=== PATIENT | female | born 1990 | race Caucasian/White ===

== ENCOUNTER 2016-12-26 09:51 | Emergency (ER) | payer MEDICAID ==
[~2016-12-26] VITALS: Ht 154.9 cm; Wt 98.1 kg
[~2016-12-26 09:51] MED LIST: CYCL10TA79 PO; DOCU250C4 PO; GABA300C PO; IBUP-974 PO; NAPR500T1 PO; TRAM50TA94 PO
[2016-12-26 09:57] VITALS: BP 120/64
--- NOTE | 2016-12-26 10:03 | NUR ---
PT AMBULATED TO BED 8 AT THIS TIME.
--- NOTE | 2016-12-26 10:12 | NUR ---
PT CAME TO ER DUE W/ C/O LOWER ABDOMINAL PAIN W/ NAUSEA X YESTERDAY.PAIN SCALE OF 8/10 NONE RADIATING PAIN;PT STATES THAT PAIN IS AGGRAVATED WHEN SHE STANDS UP;DENIES CP/SOB/F/VOMITTING AT THIS TIME;AAOX4;NO ACUTE DISTRESS NOTED AT THIS TIME;POSITION FOR COMFORT;NEEDS ATTENDED;SAFETY MEASURES DONE;BEDRAILS UP;BED BRAKES APPLIED; MADE AARE OF PT'D CONDITION.
--- NOTE | 2016-12-26 10:16 | NUR ---
DR COX AT BEDSIDE
[2016-12-26] MEDS ORDERED: NACL 0.9% 1,000 ML IV SCH (10:18)
[2016-12-26] MEDS ORDERED: FAMOTIDINE 20 MG/2 ML VIAL IVP ONE (10:20)
[2016-12-26] MEDS ORDERED: ONDANSETRON 4 MG/2 ML VIAL IVP ONE (10:20)
[2016-12-26] MEDS ORDERED: MORPHINE SULFATE 4 MG/ML SYR IVP ONE (10:20)
[2016-12-26 10:56] LABS: BASOPHILS # (AUTO) 0.2 K/uL (0.00-0.22); BASOPHILS % (AUTO) 2.3 % (0.0-2.0); EOSINOPHILS # (AUTO) 0.1 K/uL (0-0.4); EOSINOPHILS % (AUTO) 0.8 % (0.0-4.0); HEMATOCRIT 44.1 % (36-48); HEMOGLOBIN 14.7 g/dL (12.0-16.0); LYMPHOCYTES # (AUTO) 2.5 K/uL (2.5-16.5); LYMPHOCYTES % (AUTO) 28.7 % (20.5-51.1); MEAN CORPUSCULAR HEMOGLOBIN 29 pg (27-31); MEAN CORPUSCULAR HGB CONC 33 g/dL (33-37); MEAN CORPUSCULAR VOLUME 88 fL (80-94); MONOCYTES # (AUTO) 0.5 K/uL (0.8-1.0); MONOCYTES % (AUTO) 5.8 % (1.7-9.3); NEUTROPHILS # (AUTO) 5.4 K/uL (1.8-7.7); NEUTROPHILS % (AUTO) 62.4 % (42.2-75.2); PLATELET COUNT (AUTO) 321 K/uL (140-450); RED BLOOD CELL COUNT(AUTO) 5.02 MIL/uL (4.20-5.40); RED CELL DISTRIBUTION WIDTH 12.5 % (11.6-13.7); WHITE BLOOD COUNT (AUTO) 8.7 K/uL (4.8-10.8)
[2016-12-26 11:06] LABS: APPEARANCE,URINE CLEAR (CLEAR); BILIRUBIN,URINE NEGATIVE (NEGATIVE); BLOOD, URINE NEGATIVE (NEGATIVE); COLOR,URINE YELLOW (YELLOW); LEUKOCYTE ESTERASE ,URINE NEGATIVE (NEGATIVE); NITRITE, URINE NEGATIVE (NEGATIVE); PH,URINE 5.5 (5.0-9.0); PROTEIN,URINE NEGATIVE (NEGATIVE); UGLUCOSE NEGATIVE (NEGATIVE); UROBILINOGEN,URINE 0.2 EU/dL (0.2 - 1)
[2016-12-26 11:09] LABS: ANION GAP 11.7 (8-16); CALCIUM 8.6 mg/dL (8.5-10.1); CARBON DIOXIDE 28.7 mmol/L (21-32); CREATININE 0.6 mg/dL (0.6-1.3); POTASSIUM 4.4 mmol/L (3.5-5.1)
[2016-12-26 11:14] LABS: ALBUMIN 3.7 g/dL (3.4-5.0); TOTAL BILIRUBIN 0.5 mg/dL (0.0-1.0); TOTAL PROTEIN, SERUM 7.4 g/dL (6.4-8.2)
--- NOTE | 2016-12-26 11:18 | NUR ---
PT LYING ON BED;NO ACUTE DISTRESS NOTED AT THIS TIME;WILL CONTINUE TO MONITOR PT.
--- NOTE | 2016-12-26 11:40 | NUR ---
PT AMBULATED TO THE RESTROOM;ACCOMPANIED BY HER GF;NO ACUTE DISTRESS NOTED AT THIS TIME.
--- NOTE | 2016-12-26 12:43 | NUR ---
Patient discharged with v/s stable. Written and verbal after care instructions given and explained.Patient alert, oriented and verbalized understanding of instructions. Ambulatory with steady gait. All questions addressed prior to discharge. ID band removed. Patient advised to follow up with PMD. Rx of ZOFRAN AND NORCO given. Patient educated on indication of medication including possible reaction and side effects. Opportunity to ask questions provided and answered.
[2016-12-26 12:44] VITALS: BP 121/65
== END 2016-12-26 12:43 | disposition home or self-care (01) ==
LOC: MED 09:51
DX: K52.9 Noninfective gastroenteritis and colitis, unspecified (principal); J45.909 Unspecified asthma, uncomplicated
CPT/HCPCS: 36415; 80053; 81003; 81025; 82150; 83690; 85025; 96361; 96374; 96375; 99284; J2270; J2405; J3490; J7030

== ENCOUNTER 2016-12-27 20:19 | Emergency (ER) | payer MEDICAID ==
[~2016-12-27] VITALS: Ht 154.9 cm; Wt 98.0 kg
[2016-12-27 20:29] VITALS: BP 128/50
--- NOTE | 2016-12-28 00:13 | NUR ---
TO ER BED 7
--- NOTE | 2016-12-28 00:27 | NUR ---
PATIENT PRESENTS TO ED WITH BL LOWER ABD PAIN SINCE MONDAY . PT STATES LAST BM WAS MONDAY AND IT WAS VERY LITTLE . DENIES DIARRHEA; SKIN IS PINK/WARM/DRY; AAOX4 WITH EVEN AND STEADY GAIT; LUNGS CLEAR BL; HR EVEN AND REGULAR; PT DENIES ANY FEVER, CP, SOB, OR COUGH AT THIS TIME; PATIENT STATES PAIN OF 10/10 AT THIS TIME; VSS; PATIENT POSITIONED FOR COMFORT; HOB ELEVATED; BEDRAILS UP X2; BED DOWN. ER MD MADE AWARE OF PT STATUS. FAMILY AT BEDSIDE AT THIS TIME
[2016-12-28] MEDS ORDERED: NACL 0.9% 1,000 ML IV ONE (00:45)
[2016-12-28] MEDS ORDERED: ONDANSETRON 4 MG/2 ML VIAL IVP ONE (00:45)
[2016-12-28] MEDS ORDERED: HYDROmorphone 1 MG/ML AMP IVP ONE ×2 (00:45→03:45)
[2016-12-28 01:17] LABS: BASOPHILS # (AUTO) 0.3 K/uL (0.00-0.22); BASOPHILS % (AUTO) 2.5 % (0.0-2.0); EOSINOPHILS # (AUTO) 0.1 K/uL (0-0.4); EOSINOPHILS % (AUTO) 1.1 % (0.0-4.0); HEMATOCRIT 43.4 % (36-48); HEMOGLOBIN 14.3 g/dL (12.0-16.0); LYMPHOCYTES % (AUTO) 38.3 % (20.5-51.1); MEAN CORPUSCULAR HEMOGLOBIN 29 pg (27-31); MEAN CORPUSCULAR HGB CONC 33 g/dL (33-37); MEAN CORPUSCULAR VOLUME 89 fL (80-94); MONOCYTES # (AUTO) 0.7 K/uL (0.8-1.0); MONOCYTES % (AUTO) 7.2 % (1.7-9.3); NEUTROPHILS # (AUTO) 5.3 K/uL (1.8-7.7); NEUTROPHILS % (AUTO) 50.9 % (42.2-75.2); PLATELET COUNT (AUTO) 327 K/uL (140-450); RED CELL DISTRIBUTION WIDTH 12.7 % (11.6-13.7); WHITE BLOOD COUNT (AUTO) 10.4 K/uL (4.8-10.8)
[2016-12-28 01:18] LABS: APPEARANCE,URINE SL CLOUDY (CLEAR); BILIRUBIN,URINE NEGATIVE (NEGATIVE); BLOOD, URINE NEGATIVE (NEGATIVE); COLOR,URINE YELLOW (YELLOW); LEUKOCYTE ESTERASE ,URINE NEGATIVE (NEGATIVE); NITRITE, URINE NEGATIVE (NEGATIVE); PH,URINE 5.5 (5.0-9.0); PROTEIN,URINE NEGATIVE (NEGATIVE); UGLUCOSE NEGATIVE (NEGATIVE); UROBILINOGEN,URINE 0.2 EU/dL (0.2 - 1)
[2016-12-28 01:29] LABS: BACTERIA,URINE FEW /HPF (None Seen); RBC,URINE 0-5 (RARE) /HPF (0-5); SQUAMOUS EPITHELIAL CELL,UR 0-3 (FEW) /LPF (0-3 (FEW)); WBC,URINE 0-5 (RARE) /HPF (0-5)
[2016-12-28 01:32] LABS: ALBUMIN 3.7 g/dL (3.4-5.0); ANION GAP 13.6 (8-16); CALCIUM 8.8 mg/dL (8.5-10.1); CARBON DIOXIDE 27.4 mmol/L (21-32); CREATININE 0.7 mg/dL (0.6-1.3); TOTAL BILIRUBIN 0.4 mg/dL (0.0-1.0); TOTAL PROTEIN, SERUM 7.3 g/dL (6.4-8.2)
--- NOTE | 2016-12-28 04:30 | NUR ---
Patient appears to be resting comfortably in bed. Vital Signs within normal limits. Respirations even and unlabored. GIRLFRIEND AT BEDSIDE AT THIS TIME
[2016-12-28 07:04] VITALS: BP 127/82
--- NOTE | 2016-12-28 07:05 | NUR ---
Patient discharged with v/s stable. Written and verbal after care instructions given and explained. Patient alert, oriented and verbalized understanding of instructions. Ambulatory with steady gait. All questions addressed prior to discharge. ID band removed. Patient advised to follow up with PMD. Rx of FLEET DISPOSABLE RECTAL ENEMA (TWIN PACK) given. Patient educated on indication of medication including possible reaction and side effects. Opportunity to ask questions provided and answered.
--- NOTE | 2016-12-28 07:05 | NUR ---
IV removed, catheter intact and site benign. Applied folded 4x4 gauze and tape to stop bleeding.
== END 2016-12-28 07:04 | disposition home or self-care (01) ==
LOC: MED 20:20
DX: K59.00 Constipation, unspecified (principal); R11.10 Vomiting, unspecified; J45.909 Unspecified asthma, uncomplicated
CPT/HCPCS: 36415; 74177; 80053; 81001; 82150; 83690; 84703; 85025; 96361; 96374; 96375; 96376; 99285; J1170; J2405; J7030; Q9967

== ENCOUNTER 2017-01-17 19:14 | Emergency (ER) | payer MEDICAID ==
[~2017-01-17] VITALS: Ht 152.4 cm; Wt 99.8 kg
[2017-01-17 19:55] VITALS: BP 122/71
--- NOTE | 2017-01-17 20:33 | NUR ---
PT TAKEN TO [facility] FROM [facility]
--- NOTE | 2017-01-17 20:41 | NUR ---
PT RETURN FROM XRAY TO LOBBY
--- NOTE | 2017-01-17 22:40 | NUR ---
PT TAKEN TO BED 4
--- NOTE | 2017-01-17 22:41 | NUR ---
Dr. Christianson evaluating patient at bedside.
[2017-01-17] MEDS ORDERED: KETOROLAC 60 MG/2 ML VIAL IM ONE (22:55)
--- NOTE | 2017-01-17 23:07 | NUR ---
PATIENT PRESENTS TO ED WITH C/O RT ANKLE PAIN, TWISTED WHILE WALKING TODAY .PT DENIES N/V/D; SKIN IS PINK/WARM/DRY; AAOX4 WITH EVEN AND STEADY GAIT; LUNGS CLEAR BL; HR EVEN AND REGULAR; PT DENIES ANY FEVER, CP, SOB, OR COUGH AT THIS TIME; PATIENT STATES PAIN OF 8/10 AT THIS TIME; VSS; PATIENT POSITIONED FOR COMFORT; HOB ELEVATED; BEDRAILS UP X2; BED DOWN. ER MD MADE AWARE OF PT STATUS.
--- NOTE | 2017-01-18 00:09 | NUR ---
Patient discharged with v/s stable. Written and verbal after care instructions given and explained. Patient verbalized understanding. Ambulatory with steady gait. All questions addressed prior to discharge. Advised to follow up with PMD.
[2017-01-18 00:16] VITALS: BP 135/79
== END 2017-01-18 00:09 | disposition home or self-care (01) ==
LOC: MED 19:14
DX: S93.491A Sprain of other ligament of right ankle, initial encounter (principal); J45.909 Unspecified asthma, uncomplicated; Z79.899 Other long term (current) drug therapy; X58.XXXA Exposure to other specified factors, initial encounter; Y93.89 Activity, other specified; Y92.89 Other specified places as the place of occurrence of the external cause; Y99.8 Other external cause status
CPT/HCPCS: 73610; 96372; 99284; J1885

== ENCOUNTER 2017-02-15 13:56 | Emergency (ER) | payer MEDICAID ==
[~2017-02-15] VITALS: Ht 154.9 cm; Wt 99.8 kg
[~2017-02-15 13:56] MED LIST changes: +ALBUTEROL0.09 MG/A1 IH; -CYCL10TA79 PO; +CYCLOBENZAPRINE10 M7 PO; -DOCU250C4 PO; +DOK250 M1 PO; +DONNATAL1 TAB PO; -GABA300C PO; -IBUP-974 PO; +MOTRIN800 MG PO; -NAPR500T1 PO; +NAPROSYN500 MG PO; +NEURONTIN300 MG PO; -TRAM50TA94 PO; +ULTRAM50 MG PO
--- NOTE | 2017-02-15 14:50 | NUR ---
CALLED FOR PT NO ANSWER. WILL TRY AGAIN IN 10-15MINS.
[2017-02-15 15:47] VITALS: BP 120/75
--- NOTE | 2017-02-15 20:36 | NUR ---
PATIENT LEFT WITHOUT BEING SEEN BY DR. MCARTHUR. NO FURTHER CARE PROVIDED FOR PATIENT.
== END 2017-02-15 20:36 | disposition left against medical advice (07) ==
LOC: MED 13:56
DX: R10.30 Lower abdominal pain, unspecified (principal); Z53.21 Procedure and treatment not carried out due to patient leaving prior to being seen by health care provider

== ENCOUNTER 2018-02-21 10:17 | Emergency (ER) | payer MEDICAID ==
[~2018-02-21] VITALS: Ht 154.9 cm; Wt 74.2 kg
[~2018-02-21 10:17] MED LIST changes: -ALBUTEROL0.09 MG/A1 IH; -CYCLOBENZAPRINE10 M7 PO; +DOCU250C4 PO; -DOK250 M1 PO; -DONNATAL1 TAB PO; +GABA300C PO; +IBUP-974 PO; -MOTRIN800 MG PO; +NAPR-54 PO; -NAPROSYN500 MG PO; -NEURONTIN300 MG PO; +TRAM50TA1 PO; -ULTRAM50 MG PO
[2018-02-21 10:23] VITALS: BP 99/69
--- NOTE | 2018-02-21 10:30 | NUR ---
PT AMBULATED TO BED 11, REPORT GIVEN TO MIRNA MADRIGAL
--- NOTE | 2018-02-21 10:41 | NUR ---
PATIENT PRESENTS TO ED WITH COMPLAINTS OF RUQ PAIN X 3 WEEKS, AND N/V/D. PATIENT ALSO REPORTS EXTREME FATIGUE AND DIZZINESS. PATIENT STATES SHE FEELS LIKE SHE IS GOING TO FAINT WHEN SHE GETS OUT OF BED. NEGATIVE FOR ORTHOSTATICS. SKIN IS PINK/WARM/DRY; AAOX4 WITH EVEN AND STEADY GAIT; LUNGS CLEAR BL; HR EVEN AND REGULAR; PT DENIES ANY FEVER, CP, SOB, OR COUGH AT THIS TIME; PATIENT STATES PAIN OF 7/10 AT THIS TIME; VSS; PATIENT POSITIONED FOR COMFORT; HOB ELEVATED; BEDRAILS UP X2; BED DOWN. ER MD MADE AWARE OF PT STATUS.
[2018-02-21] MEDS ORDERED: NACL 0.9% 1,000 ML IV SCH (11:27)
[2018-02-21] MEDS ORDERED: ONDANSETRON 4 MG/2 ML VIAL IVP ONE (11:30)
[2018-02-21] MEDS ORDERED: MORPHINE SULFATE 4 MG/ML SYR IVP ONE (11:30)
[2018-02-21 11:51] LABS: BASOPHILS % (AUTO) 0.6 % (0.0-2.0); EOSINOPHILS # (AUTO) 0.1 K/uL (0-0.4); HEMATOCRIT 40.1 % (36-48); HEMOGLOBIN 13.1 g/dL (12.0-16.0); LYMPHOCYTES # (AUTO) 1.8 K/uL (2.5-16.5); LYMPHOCYTES % (AUTO) 23.7 % (20.5-51.1); MEAN CORPUSCULAR HEMOGLOBIN 30 pg (27-31); MEAN CORPUSCULAR HGB CONC 33 g/dL (33-37); MEAN CORPUSCULAR VOLUME 90.5 fL (80-94); MONOCYTES # (AUTO) 0.4 K/uL (0.8-1.0); NEUTROPHILS # (AUTO) 5.3 K/uL (1.8-7.7); NEUTROPHILS % (AUTO) 69.7 % (42.2-75.2); PLATELET COUNT (AUTO) 356 K/uL (140-450); RED BLOOD CELL COUNT(AUTO) 4.43 MIL/uL (4.20-5.40); RED CELL DISTRIBUTION WIDTH 14.6 % (11.6-13.7); WHITE BLOOD COUNT (AUTO) 7.6 K/uL (4.8-10.8)
--- NOTE | 2018-02-21 12:20 | NUR ---
PATIENT MBULATED TO RESTROOM.
[2018-02-21 12:24] LABS: APPEARANCE,URINE CLEAR (CLEAR); BILIRUBIN,URINE NEGATIVE (NEGATIVE); BLOOD, URINE NEGATIVE (NEGATIVE); COLOR,URINE YELLOW (YELLOW); LEUKOCYTE ESTERASE ,URINE NEGATIVE (NEGATIVE); NITRITE, URINE NEGATIVE (NEGATIVE); UGLUCOSE NEGATIVE (NEGATIVE)
[2018-02-21 12:34] LABS: ALBUMIN 3.3 g/dL (3.4-5.0); ANION GAP 11.9 (8-16); CREATININE 0.6 mg/dL (0.6-1.3); POTASSIUM 4.9 mmol/L (3.5-5.1); TOTAL BILIRUBIN 0.4 mg/dL (0.0-1.0)
[2018-02-21 12:42] LABS: RBC,URINE 0-5 (RARE) /HPF (0-5); WBC,URINE 0-5 (RARE) /HPF (0-5)
[2018-02-21] MEDS ORDERED: KETOROLAC 30 MG/ML VIAL IVP ONE (12:50)
[2018-02-21] MEDS ORDERED: METOCLOPRAMIDE 10 MG/2 ML INJ VIAL IVP ONE (12:50)
[2018-02-21] MEDS ORDERED: HYDROmorphone PFS 2 MG/ML SYR IVP ONE (12:50)
[2018-02-21] MEDS ORDERED: diphenhydrAMINE 50 MG/ML VIAL IVP ONE (12:50)
[2018-02-21 14:54] VITALS: BP 89/46
--- NOTE | 2018-02-21 14:54 | NUR ---
Patient discharged with v/s stable. Written and verbal after care instructions given and explained. Patient alert, oriented and verbalized understanding of instructions. Ambulatory with steady gait. All questions addressed prior to discharge. ID band removed. Patient advised to follow up with PMD. Rx of Hayward, Reglan, and Ibuprofen given. Patient educated on indication of medication including possible reaction and side effects. Opportunity to ask questions provided and answered.
== END 2018-02-21 14:54 | disposition home or self-care (01) ==
LOC: MED 10:17
DX: K80.80 Other cholelithiasis without obstruction (principal); J45.909 Unspecified asthma, uncomplicated
CPT/HCPCS: 36415; 76705; 80053; 81001; 81025; 83690; 84703; 85025; 96361; 96374; 96375; 99285; J1170; J1200; J1885; J2270; J2405; J2765; Q0092

== ENCOUNTER 2018-02-28 11:31 | Inpatient (IN) | payer MEDICAID ==
[~2018-02-28] VITALS: Ht 152.4 cm; Wt 77.1 kg
[2018-02-28 11:36] VITALS: BP 121/57
[2018-02-28] MEDS ORDERED: NACL 0.9% 1,000 ML IV ONE (11:40)
[2018-02-28] MEDS ORDERED: MORPHINE SULFATE 4 MG/ML SYR IVP ONE ×2 (11:40→12:35)
--- NOTE | 2018-02-28 11:41 | NUR ---
PT AMBULATES TO BED 11
--- NOTE | 2018-02-28 12:00 | NUR ---
PATIENT PRESENTS TO ED WITH COMPLAINTS OF ABDOMINAL PAIN. ANNELISEN STATES DR. REID CALLED HER AND ADVISED HER TO COME BACK IN FROM YESTERDAY TO GET ADMITTED TO THE HOSPITAL. PATIENT VISIBLY UPSET CRYING IN PAIN. SKIN IS PINK/WARM/DRY; AAOX4 WITH EVEN AND STEADY GAIT; LUNGS CLEAR BL; HR EVEN AND REGULAR; PT DENIES ANY FEVER, CP, SOB, OR COUGH AT THIS TIME; PATIENT STATES PAIN OF 10/10 AT THIS TIME; VSS; PATIENT POSITIONED FOR COMFORT; HOB ELEVATED; BEDRAILS UP X2; BED DOWN. ER MD MADE AWARE OF PT STATUS.
[2018-02-28] MEDS ORDERED: ONDANSETRON 4 MG/2 ML VIAL IVP ONE (12:05)
[2018-02-28 12:10] LABS: BASOPHILS % (AUTO) 0.6 % (0.0-2.0); EOSINOPHILS # (AUTO) 0.1 K/uL (0-0.4); EOSINOPHILS % (AUTO) 1.4 % (0.0-4.0); HEMATOCRIT 38.5 % (36-48); HEMOGLOBIN 12.6 g/dL (12.0-16.0); LYMPHOCYTES # (AUTO) 1.9 K/uL (2.5-16.5); LYMPHOCYTES % (AUTO) 26.2 % (20.5-51.1); MEAN CORPUSCULAR HEMOGLOBIN 30 pg (27-31); MEAN CORPUSCULAR HGB CONC 33 g/dL (33-37); MEAN CORPUSCULAR VOLUME 90.9 fL (80-94); MONOCYTES # (AUTO) 0.4 K/uL (0.8-1.0); NEUTROPHILS # (AUTO) 4.7 K/uL (1.8-7.7); NEUTROPHILS % (AUTO) 65.8 % (42.2-75.2); PLATELET COUNT (AUTO) 312 K/uL (140-450); RED BLOOD CELL COUNT(AUTO) 4.24 MIL/uL (4.20-5.40); RED CELL DISTRIBUTION WIDTH 14.6 % (11.6-13.7); WHITE BLOOD COUNT (AUTO) 7.1 K/uL (4.8-10.8)
[2018-02-28 12:30] LABS: ANION GAP 6.4 (8-16); CARBON DIOXIDE 29.3 mmol/L (21-32); CREATININE 0.7 mg/dL (0.6-1.3); POTASSIUM 3.7 mmol/L (3.5-5.1)
[2018-02-28 12:36] LABS: ALBUMIN 3.4 g/dL (3.4-5.0); TOTAL BILIRUBIN 0.4 mg/dL (0.0-1.0)
[2018-02-28] MEDS ORDERED: ACETAMINOPHEN 325 MG TAB PO PRN (13:05)
[2018-02-28] MEDS ORDERED: ONDANSETRON 4 MG/2 ML VIAL IM/IVP PRN (13:05)
[2018-02-28] MEDS ORDERED: HYDROcodone/APAP 5/325 MG 1 TAB TAB PO PRN (13:05)
[2018-02-28] MEDS ORDERED: DOCUSATE SODIUM 100 MG GELCAP PO PRN (13:05)
--- NOTE | 2018-02-28 13:14 | NUR ---
XRAY AT BEDSIDE
--- NOTE | 2018-02-28 13:49 | NUR ---
Patient will be admitted to care of DR. VELAZQUEZ. Admited to [facility]. Will go to room 105B. Belongings list completed. Report to MIRNA BECKER.
[2018-02-28 13:50] VITALS: BP 118/56
--- NOTE | 2018-02-28 14:00 | NUR ---
PT ARRIVED FROM ER IN [facility], REPORT RECEIVED FROM ER, PT AAOX4, AMBULATES FROM HALLWAY TO BED WITH STAEDY GAIT, C/O ABD PAIN 06/27, WILL MEDICATE PER ORDER, ABD SOFT, NON DISTENDED, TENDER TO PALP RUQ, PT REPORTS NAUSEA BUT NO VOMITING, DIARRHEA AT HOME, PLAN OF CARE REVIEWED, PT ORIENTED TO ROOM AND FLOOR, CALL LOZADA WITHIN REACH, SIDE RAILS UP, BED LOCKED IN LOW POSITION, WILL CONTINUE TO MONITOR.
[2018-02-28 14:02] LABS: APPEARANCE,URINE CLEAR (CLEAR); BILIRUBIN,URINE NEGATIVE (NEGATIVE); BLOOD, URINE 3+ (NEGATIVE); LEUKOCYTE ESTERASE ,URINE NEGATIVE (NEGATIVE); NITRITE, URINE NEGATIVE (NEGATIVE); UGLUCOSE NEGATIVE (NEGATIVE)
[2018-02-28] MEDS: NACL 0.9% 1,000 ML IV SCH (14:13)
[2018-02-28 14:21] LABS: BARBITURATE, URINE NEG. ng/ml (NEG <=200); BENZODIAZEPINE, URINE NEG. ng/mL (NEG <=200); CANNABINOID, URINE NEG. ng/mL (NEG <=50); COCAINE, URINE NEG. ng/mL (NEG <=300); OPIATE, URINE NEG. ng/mL (NEG <=2000); PHENCYCLIDINE SCREEN,URINE NEG. ng/mL (NEG <=25)
[2018-02-28 14:25] LABS: CHOL/HDL RATIO 2.9 (1-4.5); MAGNESIUM 1.8 mg/dL (1.8-2.4); PHOSPHORUS 3.3 mg/dL (2.5-4.9); THYROID STIMULATING HORMONE 1.74 uIU/mL (0.34-3.74)
[2018-02-28 14:26] LABS: COLOR,URINE STRAW (YELLOW)
[2018-02-28] MEDS: HYDROcodone/APAP 10/325 MG 1 TAB TAB PO PRN (14:36)
--- NOTE | 2018-02-28 14:36 | NUR ---
PT CONTINUED TO CO PAIN AFTER 5MG NORCO, DOSE INCREASED TO 10MG BY DR ELKINS, ADDITIONAL 5MG, ONLY HALF TABLET GIVEN AT THIS TIME TO MAKE 10MG TOTAL. ALSO TORADOL GIVEN IVP, WILL CONTINUE TO MONITOR.
[2018-02-28] MEDS: KETOROLAC 30 MG/ML VIAL IVP PRN (14:37)
[2018-02-28 15:00] LABS: RBC,URINE 0-5 (RARE) /HPF (0-5); WBC,URINE 0-5 (RARE) /HPF (0-5)
--- NOTE | 2018-02-28 15:58 | NUR ---
DR RHODES AT BEDSIDE.
[2018-02-28 16:00] VITALS: BP 102/68
[2018-02-28] MEDS ORDERED: GABAPENTIN 300 MG CAP PO SCH (17:00)
--- NOTE | 2018-02-28 17:23 | NUR ---
PT RESTING QUIETLY IN NAD, RESP EVEN UNLABORED, STATES PAIN IS TOLERABLE NOW, WILL CONTINUE TO MONITOR.
--- NOTE | 2018-02-28 18:20 | NUR ---
PT CRYING WITH PAIN, STATES UNABLE TO WAIT FOR NEXT DOSE OF PAIN MED AT 2030, DR ELKINS NOTIFIED, NEW MEDICATION ORDERED.
[2018-02-28] MEDS ORDERED: oxyCODONE 5 MG TAB PO PRN (18:35)
--- NOTE | 2018-02-28 19:18 | NUR ---
REPORT GIVEN TO IMAGE EDITOR NURSE, PT IN STABLE CONDITION.
--- NOTE | 2018-02-28 19:20 | NUR ---
RECEIVED REPORT FROM MAYITO BRADLEY DAY SHIFT NURSE FOR TRANSFER OF CARE AT BEDSIDE, PT IS A 27YR F IN STABLE CONDITION. PT SITTING UP IN BED AOX4 HOB UP 45%V WITH SIDE RAILS UP. PT HAS HX OF ASTHMA BUT CURRENTLY SHE HAS EVEN AND UNLABORED RESPIRATIONS. PT HAS 20G ON LAC RUNNING AT 70MLS /HR.IV SITE IS ASYMPTOMATIC WITH NO S/S OF INFECTION OF INFILTRATION. BS ACTIVE IN ALL 4 QUADS AND PT DENIES PAIN AT THIS TIME. FAMILY AT BEDSIDE.
[2018-02-28 20:00] VITALS: BP 95/66
--- NOTE | 2018-02-28 20:00 | NUR ---
PT C/O HUNGRY AND WAS UNABLE TO EAT ALL DAY. PT REQUEST SOME TYPE OF SNACK OR SANDWICH. PT WAS BROUGHT 1/2 PEANUT BUTTER SANDWICH AND SOME CRACKERS AND JUICE. . PT IS AWAITING HIADAL SCAN AT 8 AM TOMORROW, AND WAS REMINDED THAT SHE IS NPO AFTER MIDNIGHT, PT VERBALIZED UNDERSTANDING.
--- NOTE | 2018-02-28 22:00 | NUR ---
PT WAS GIVEN PRN 650 MG TYLENOL FOR MILD TEMP OF 99.2. PT FAMILY HAD ALSO BROUGHT FOOD FROM HOME. PT REMINDED THAT SHE NEEDS TO BE NPO AFTER MIDNIGHT PT VERBALIZED UNDERSTANDING.
[2018-03-01] VITALS: BP 95/46
--- NOTE | 2018-03-01 01:30 | NUR ---
PT SLEEPING QUIETLY NO S/S OF DISTRESS NOTED. PT ALERT AND AWAKE AND ASKED STAFF FOR PAIN MEDICATION. DR STEVENS WAS CALLED AND B/P RETAKEN WITH RESIDENT SITTING UP. NEW B/P WAS 97/60. PT REQUESTED SOMETHING FO PAIN. PT WAS GIVEN A TORADOL SHOT WITH POSITIVE EFFECT NOTED. Addendum: 03/01/18 at 0632 by Ya Leroy RN PT WAS GIVEN NORCO FOR PAIN AT THIS TIME,
[2018-03-01] MEDS: HYDROcodone/APAP 10/325 MG 1 TAB TAB PO PRN ×2 (01:34→14:14)
[2018-03-01] MEDS: NACL 0.9% 1,000 ML IV SCH ×2 (04:17→14:33)
--- NOTE | 2018-03-01 04:30 | NUR ---
PT WAS GIVEN TORADOL IV/PRN FOR PAIN WITH POSITIVE EFFECT.
[2018-03-01] MEDS: KETOROLAC 30 MG/ML VIAL IVP PRN ×2 (04:35→19:49)
[2018-03-01 05:54] VITALS: BP 97/60
[2018-03-01 06:47] LABS: BASOPHILS % (AUTO) 0.4 % (0.0-2.0); EOSINOPHILS # (AUTO) 0.1 K/uL (0-0.4); EOSINOPHILS % (AUTO) 1.8 % (0.0-4.0); HEMOGLOBIN 11.9 g/dL (12.0-16.0); LYMPHOCYTES % (AUTO) 40.1 % (20.5-51.1); MEAN CORPUSCULAR HEMOGLOBIN 30 pg (27-31); MEAN CORPUSCULAR HGB CONC 34 g/dL (33-37); MEAN CORPUSCULAR VOLUME 89.5 fL (80-94); MONOCYTES # (AUTO) 0.4 K/uL (0.8-1.0); MONOCYTES % (AUTO) 5.6 % (1.7-9.3); NEUTROPHILS # (AUTO) 3.9 K/uL (1.8-7.7); NEUTROPHILS % (AUTO) 52.1 % (42.2-75.2); PLATELET COUNT (AUTO) 280 K/uL (140-450); RED BLOOD CELL COUNT(AUTO) 3.91 MIL/uL (4.20-5.40); RED CELL DISTRIBUTION WIDTH 14.4 % (11.6-13.7); WHITE BLOOD COUNT (AUTO) 7.4 K/uL (4.8-10.8)
[2018-03-01 07:06] LABS: CARBON DIOXIDE 28.2 mmol/L (21-32); CREATININE 0.7 mg/dL (0.6-1.3); POTASSIUM 4.2 mmol/L (3.5-5.1)
[2018-03-01 07:15] LABS: MAGNESIUM 1.9 mg/dL (1.8-2.4); PHOSPHORUS 4.3 mg/dL (2.5-4.9)
--- NOTE | 2018-03-01 07:15 | NUR ---
TRANSFER OF CARE TO DAYSHIFT GIVEN AT BEDSIDE , PT IN STABLE CONDITION
--- NOTE | 2018-03-01 07:20 | NUR ---
RECEIVED PT FROM DISPLAY MANAGER NURSE, DENNISE, PT IS AWAKE AND LYING ON THE BED WITH AN IV LINE ON THE RT AC, G.20 NS AT 70ML/HR, INTACT. SIDE RAILS ARE UP AND CALL LIGHT WITHIN REACH. PT IS ALERT, ORIENTX4 AND NO SIGN OF DISTRESS NOTED.WILL CONTINUE TO MONITOR.
--- NOTE | 2018-03-01 07:50 | NUR ---
PT IS AWAKE AND VITAL SIGNS TAKEN, BP ID 96/[address] GARRISON WAS INFORMED, AND DR. GARRISON INCREASED THE RATE OF THE PT'S IV TO 100ML/HR. PT'S O2 SAT IS 98%. SIDE RAILS ARE UP AND CALL LIGHT WITHIN REACH AND PT VERBALIZED A PAIN RATE OT 4/10. NO OTHER UNTOWARD SIGN AND SYMPTOM NOTED. WILL CONTINUE TO MONITOR.
[2018-03-01 08:00] VITALS: BP 96/60
--- NOTE | 2018-03-01 08:13 | NUR ---
PATIENT HAS BEEN SCREENED AND CATEGORIZED MODERATE NUTRITION RISK. PATIENT WILL BE SEEN WITHIN 3-5 DAYS OF ADMISSION. 03/03/18 03/05/[address]
[2018-03-01 08:23] LABS: T4 (THYROXINE) 6.7 ug/dL (4.5-12.0)
[2018-03-01] MEDS ORDERED: MORPHINE SULFATE 2 MG/ML SYR IVP ONE (08:30)
--- NOTE | 2018-03-01 09:10 | NUR ---
HIDA SCAN WAS POSTPONED, AND DR. SKINNER INFORMED THAT PT'S BP IS 98/61. MORPHINE WAS HOLD OFF AND DR. SKINNER SAID TO AMBULATE THE PT AND OBSERVE. ORDER ACKNOWLEDGED.
--- NOTE | 2018-03-01 09:15 | NUR ---
PT WAS ASSISTED TO AMBULATE IN THE HALLWAY, NO SOB NOTED, BUT PT FELT NAUSEATED AFTER AMBULATING BUT NO VOMITING. PT WAS ASSISTED BACK TO BED AND MADE COMFORTABLE. SIDE RAILS ARE UP AND CALL LIGHT WITHIN REACH. WILL CONTINUE TO MONITOR.
[2018-03-01] MEDS ORDERED: HYDROcodone/APAP 10/325 MG 1 TAB TAB PO SCH (10:20)
--- NOTE | 2018-03-01 10:40 | NUR ---
DR. SKINNER ORDERED THAT MORPHINE SULFATE MAY BE GIVEN TO THE PT FOR THE HIDA SCAN PROCEDURE. PT'S BP AT THIS TIME IS 94/55 AND PULSE IS 64, O2 SAT IS 96%. CHARGE NURSE, BERNARDO WAS CONSULTED AND INFORMED OF THE SITUATION. DR. SKINNER AND CHARGE NURSEBERNARDO AGREED TO GIVE MORPHIN SULFATE ON THE PT.
--- NOTE | 2018-03-01 10:45 | NUR ---
PT WAS OUT OF THE ROOM AND TAKEN BY SHEELA LEON TO DO A HIDS SCAN ON THE PT. PT'S VITAL SIGNS WAS TAKEN AND BP IS 105/60, PULSE IS67 AND O2 SAT IS 97%. NO SIGN OF DISTRESS NOTED ON THE PT.
[2018-03-01] MEDS ORDERED: MORPHINE SULFATE 2 MG/ML SYR IVP SCH (11:00)
[2018-03-01 12:00] VITALS: BP 120/58
--- NOTE | 2018-03-01 12:00 | NUR ---
PT WAS BACK TO HER ROOM FROM HIDA SCAN. VITAL SIGNS TAKEN AND NO SIGN OF DISTRESS NOTED. WILL CONTINUE TO MONITOR.
--- NOTE | 2018-03-01 14:22 | NUR ---
PT IS AWAKE AND IS SEATED ON THE BED, PT VERBALIZED A PAIN RATE OF 7/10, MEDICATIONS GIVEN AND PT TOLERATED IT. NO SIGN OF DISTRESS NOTED. WILL CONTINUE TO MONITOR.
[2018-03-01 16:00] VITALS: BP 120/63
--- NOTE | 2018-03-01 16:55 | NUR ---
PT IS AWAKE, SEATED ON THE BED, WITH FAMILY ON THE BEDSIDE, VITAL SIGNS TAKEN AND IS STABLE. NO SIGN OF DISTRESS NOTED. WILL CONTINUE TO MONITOR.
--- NOTE | 2018-03-01 19:25 | NUR ---
ENDORSED PT TO DOPE HEATER NURSERONI, FOR CONTINUITY OF CARE. PT IS STABLE AT THIS TIME, LYING ON THE BED.
--- NOTE | 2018-03-01 19:26 | NUR ---
RECEIVED REPORT AT PT BEDSIDE FROM DAY SHIFT RN, PT IS A/OX4, ON ROOM AIR AT THE MOMENT. PT ABLE TO MAKE NEEDS KNOWN, ABLE TO FOLLOW COMMANDS. RESPIRATIONS EVEN AND UNLABORED. PT SKIN IS INTACT, PT AMBULATES WITH STEADY GAIT. 20G IV TO RIGHT AC, ASYMPTOMATIC, INTACT AND PATENT. UPDATED BOARD. DISCUSSED PLAN OF CARE WITH PT, PT VERBALIZED UNDERSTANDING. VITAL SIGNS WITHIN NORMAL LIMITS. PT C/O 6/10 ABDOMINAL PAIN, WILL MEDICATE ACCORDINGLY. PT STABLE, NO SIGNS OF DISTRESS NOTED AT THIS TIME. BED IN LOWEST POSITION, BED ALARM ON. CALL LIGHT WITHIN REACH, WILL CONTINUE TO MONITOR.
[2018-03-01 19:50] VITALS: BP 112/52
--- NOTE | 2018-03-01 20:00 | NUR ---
ADMINISTERED TORADOL FOR PAIN, PT TOLERATED WELL.
--- NOTE | 2018-03-01 20:35 | NUR ---
OBTAINED ORDER FOR PT TO SHOWER REQUESTED BY PT. WILL WRAP IV SITE AND ESCORT PT SHOWER.
--- NOTE | 2018-03-01 21:25 | NUR ---
PT RETURNED FROM SHOWER. REMOVED IV SITE COVER AND IV STILL INTACT, AND ASYMPTOMATIC, WITH GOOD BLOOD RETURN. PT STABLE, NO SIGNS OF DISTRESS NOTED AT THIS TIME. BED IN LOWEST POSITION, BED ALARM ON. CALL LIGHT WITHIN REACH, WILL CONTINUE TO MONITOR.
[2018-03-02] VITALS: BP 101/51
--- NOTE | 2018-03-02 | NUR ---
VITAL SIGNS WITHIN NORMAL LIMITS. PT C/O 04/27 ABDOMINAL PAIN, WILL MEDICATE ACCORDINGLY. PT STABLE, NO SIGNS OF DISTRESS NOTED AT THIS TIME. BED IN LOWEST POSITION, BED ALARM ON. CALL LIGHT WITHIN REACH, WILL CONTINUE TO MONITOR.
[2018-03-02] MEDS: HYDROcodone/APAP 10/325 MG 1 TAB TAB PO PRN (00:17)
--- NOTE | 2018-03-02 00:20 | NUR ---
ADMINISTERED NORCO FOR PAIN, PT TOLERATED WELL.
[2018-03-02] MEDS: NACL 0.9% 1,000 ML IV SCH ×3 (00:42→20:20)
[2018-03-02 04:00] VITALS: BP 102/49
--- NOTE | 2018-03-02 04:00 | NUR ---
VITAL SIGNS WITHIN NORMAL LIMITS. PT STABLE, NO SIGNS OF DISTRESS NOTED AT THIS TIME. BED IN LOWEST POSITION, BED ALARM ON. CALL LIGHT WITHIN REACH, WILL CONTINUE TO MONITOR.
[2018-03-02 07:17] LABS: BASOPHILS % (AUTO) 0.4 % (0.0-2.0); EOSINOPHILS # (AUTO) 0.2 K/uL (0-0.4); EOSINOPHILS % (AUTO) 2.1 % (0.0-4.0); HEMATOCRIT 36.8 % (36-48); HEMOGLOBIN 12.1 g/dL (12.0-16.0); LYMPHOCYTES # (AUTO) 2.6 K/uL (2.5-16.5); MEAN CORPUSCULAR HEMOGLOBIN 29 pg (27-31); MEAN CORPUSCULAR HGB CONC 33 g/dL (33-37); MEAN CORPUSCULAR VOLUME 89.6 fL (80-94); MONOCYTES # (AUTO) 0.5 K/uL (0.8-1.0); MONOCYTES % (AUTO) 7.1 % (1.7-9.3); NEUTROPHILS # (AUTO) 4.3 K/uL (1.8-7.7); NEUTROPHILS % (AUTO) 56.4 % (42.2-75.2); PLATELET COUNT (AUTO) 311 K/uL (140-450); RED BLOOD CELL COUNT(AUTO) 4.11 MIL/uL (4.20-5.40); RED CELL DISTRIBUTION WIDTH 14.5 % (11.6-13.7); WHITE BLOOD COUNT (AUTO) 7.6 K/uL (4.8-10.8)
--- NOTE | 2018-03-02 07:20 | NUR ---
ENDORSED PT, IN STABLE CONDITION, TO DAY SHIFT RN, FOR CONTINUITY OF CARE.
--- NOTE | 2018-03-02 07:25 | NUR ---
RECEIVED PT FROM HUMAN RESOURCES ADVISOR NURSE, RONI, PT IS ASLEEP LYING ON THE BED WITH AN IV LINE ON THE RT AC G. 20, INTACT AND NS AT 100ML/HR, INFUSING WELL. SIDE RAILS ARE UP AND CALL LIGHT WITHIN REACH. RESPIRATIONS EVEN AND NO SIGN OF DISTRESS NOTED. WILL MONITOR
[2018-03-02 08:00] VITALS: BP 96/58
[2018-03-02 08:07] LABS: ANION GAP 10.6 (8-16); CARBON DIOXIDE 29.4 mmol/L (21-32); CREATININE 0.7 mg/dL (0.6-1.3)
--- NOTE | 2018-03-02 08:45 | NUR ---
ACKNOWLEDGED AN ORDER FROM DR. ELKINS FOR THE PT'S DIET BEING CHANGED FROM REGULAR DIET TO NPO EXCEPT MEDS. SAID THAT PT IS NOT TOLERATING HER REGULAR DIET WELL AND THAT FOOD IS MAKING HER PAIN WORST.
[2018-03-02] MEDS ORDERED: oxyCODONE/APAP 5/325 MG 1 TAB TAB PO PRN (09:10)
--- NOTE | 2018-03-02 09:42 | NUR ---
CALLED PHARMACY TO VERIFY AN ACKNOWLEDGED PAIN MEDICATION FOR THE PT ORDERED BY DR. ELKINS AND SPOKE TO RADHA, AND SHE SAID THAT DR. ELKINS SHOULD CHANGE THE PERCOSET AND THE TORADOL ORDERED FOR THE PT, ONE PAIN MEDICATION SHOULD BE FOR SEVERE AND ON MEDICATION FOR MODERATE, PAIN MEDICATIONS ORDERD BY SEVERO MAHMOOD FOR THE PT WERE BOTH STATED FOR MODERATE PAIN AND PHARMACIST, RADHA SAID THAT IT IS NOT POSSIBLE. ACKNOWLEDGED INFORMATION. WILL INFORM THE MD.
--- NOTE | 2018-03-02 10:50 | NUR ---
INFORMED DR. ELKINS REGARDING THE VERIFICATION OF ORDER NEEDED BY THE PHARMACY, FOR THE PT'S PAIN MEDICATION, DR. ELKINS CALLED PHARMACY AND SPPOKE TO WILLIAMS AND VERIFIED THE ORDER MADE.
[2018-03-02] MEDS: oxyCODONE/APAP 5/325 MG 1 TAB TAB PO PRN ×3 (11:38→23:38)
--- NOTE | 2018-03-02 13:25 | NUR ---
ENDORSED PT TO AM SHIFT NURSEJAIME FOR CONTINUITY OF CARE. PT IS STABLE AT THIS TIME.
--- NOTE | 2018-03-02 13:30 | NUR ---
RECEIVED REPORT FROM LOLLY BRADLEY. PATIENT STABLE IN BED MD TO CHANGE ORDER FOR DIET AND NPO AFTER MIDNIGHT .
[2018-03-02] MEDS: KETOROLAC 30 MG/ML VIAL IVP PRN ×2 (14:40→21:46)
--- NOTE | 2018-03-02 14:40 | NUR ---
ADMINISTERED TORADOL PATIENT COMPLAINING OF PAIN WITH MOVEMENT. WILL CONT TO MONITOR.
[2018-03-02 16:00] VITALS: BP 118/64
--- NOTE | 2018-03-02 17:31 | NUR ---
ADMINISTERED PERCOCET FOR 8/10 PAIN TO ABD. PATIENT TOLERATED WELL. FAMILY AT BEDSIDE. WILL CONT TO MONITOR.
--- NOTE | 2018-03-02 19:20 | NUR ---
ENDORSED REPORT TO EQUITY RESEARCH ASSOCIATE NURSE AT BEDSIDE FOR CONTINUITY OF CARE. PATIENT STABLE.
--- NOTE | 2018-03-02 19:21 | NUR ---
PATIENT REPORT RECEIVED FROM MORNING NURSE. PATIENT IS AWAKE, ALERT AND ORIENTED. NO SIGNS AND SYMPTOMS OF DISTRESS NOTED. NO COMPLAINTS OF PAIN AT THIS TIME. IV SITE NOTED ON RIGHT AC, IV FLUID INFUSING WELL. PLAN OF CARE DISCUSSED WITH PATIENT. PATIENT VERBALIZED UNDERSTANDING. BED IN LOWEST POSITION, SIDE RAILS UP AND CALL LIGHT WITHIN REACH. WILL CONTINUE TO MONITOR
--- NOTE | 2018-03-02 22:08 | NUR ---
PATIENT REQUESTED TO TAKE A SHOWER. TOWELS, GOWN AND SHOWER SUPPLIES GIVEN TO PATIENT. PATIENT AMBULATED TO SHOWER. PATIENT IS STEADY. WILL CONTINUE TO MONITOR
--- NOTE | 2018-03-02 22:30 | NUR ---
PATIENT FINISHED TAKING A SHOWER. CHANGED LINENS, BLANKETS AND PADS ON BED
[2018-03-03] VITALS: BP 100/55
--- NOTE | 2018-03-03 00:30 | NUR ---
IV SITE LEAKING. IV DISCONTINUED. NEW IV SITE INSERTED IN LEFT FOREARM 18 GAUGE. 2 ATTEMPTS MADE. PATIENT TOLERATED WELL
--- NOTE | 2018-03-03 03:00 | NUR ---
CHECKED ON PATIENT. PATIENT IS ASLEEP. NO SIGNS AND SYMPTOMS OF DISTRESS NOTED. BREATHING EVEN AND UNLABORED. WILL CONTINUE TO MONITOR
--- NOTE | 2018-03-03 05:00 | NUR ---
CHECKED ON PATIENT. PATIENT IS ASLEEP. NO SIGNS AND SYMPTOMS OF DISTRESS NOTED. BREATHING EVEN AND UNLABORED. WILL CONTINUE TO MONITOR
[2018-03-03] MEDS: NACL 0.9% 1,000 ML IV SCH (05:14)
[2018-03-03 06:57] LABS: BASOPHILS # (AUTO) 0.1 K/uL (0.00-0.22); BASOPHILS % (AUTO) 0.9 % (0.0-2.0); EOSINOPHILS # (AUTO) 0.2 K/uL (0-0.4); EOSINOPHILS % (AUTO) 2.3 % (0.0-4.0); HEMATOCRIT 33.7 % (36-48); HEMOGLOBIN 11.6 g/dL (12.0-16.0); LYMPHOCYTES # (AUTO) 2.7 K/uL (2.5-16.5); LYMPHOCYTES % (AUTO) 39.2 % (20.5-51.1); MEAN CORPUSCULAR HEMOGLOBIN 30 pg (27-31); MEAN CORPUSCULAR HGB CONC 34 g/dL (33-37); MEAN CORPUSCULAR VOLUME 87.2 fL (80-94); MONOCYTES # (AUTO) 0.4 K/uL (0.8-1.0); MONOCYTES % (AUTO) 5.8 % (1.7-9.3); NEUTROPHILS # (AUTO) 3.5 K/uL (1.8-7.7); NEUTROPHILS % (AUTO) 51.8 % (42.2-75.2); PLATELET COUNT (AUTO) 296 K/uL (140-450); RED BLOOD CELL COUNT(AUTO) 3.87 MIL/uL (4.20-5.40); RED CELL DISTRIBUTION WIDTH 13.9 % (11.6-13.7); WHITE BLOOD COUNT (AUTO) 6.8 K/uL (4.8-10.8)
--- NOTE | 2018-03-03 07:00 | NUR ---
PATIENT REPORT GIVEN TO MORNING NURSE AT BEDSIDE FOR CONTINUITY OF CARE. PATIENT IS IN STABLE CONDITION
--- NOTE | 2018-03-03 07:04 | NUR ---
RECEIVED REPORT FROM NIGHT RN. PT RESTING IN BED. AAOX4. NO S/S OF ACUTE DISTRESS. PT DENIES PAIN. IV SITE PATENT AND INTACT. PLAN OF CARE DISCUSSED WITH PT. MOTHER AT BEDSIDE. CALL LIGHT WITHIN REACH. SAFETY MEASURES ENSURED. WILL CONTINUE TO MONITOR.
[2018-03-03 07:18] LABS: ANION GAP 11.8 (8-16); CREATININE 0.6 mg/dL (0.6-1.3); POTASSIUM 3.8 mmol/L (3.5-5.1)
[2018-03-03 07:27] LABS: MAGNESIUM 1.7 mg/dL (1.8-2.4); PHOSPHORUS 4.1 mg/dL (2.5-4.9)
--- NOTE | 2018-03-03 07:44 | NUR ---
PT TAKEN OFF UNIT TO OR UNIT WITH MIRNA ORTIZ.
[2018-03-03] MEDS ORDERED: DESFLURANE 240 ML BTL INH ONE (08:00)
[2018-03-03] MEDS ORDERED: ONDANSETRON 4 MG/2 ML VIAL ONE (08:00)
[2018-03-03] MEDS ORDERED: PROPOFOL 200 MG/20 ML VIAL IV ONE (08:00)
[2018-03-03] MEDS ORDERED: KETOROLAC 60 MG/2 ML VIAL IM ONE (08:00)
[2018-03-03] MEDS ORDERED: ceFAZolin 1,000 MG VIAL ONE ×2 (08:00→08:21)
[2018-03-03] MEDS ORDERED: NEOSTIGMINE 1:1000 10 MG/10 ML VIAL ONE (08:00)
[2018-03-03] MEDS ORDERED: ROCURONIUM 50 MG/5 ML VIAL IV ONE (08:00)
[2018-03-03] MEDS ORDERED: DEXAMETHASONE 4 MG/ML VIAL ONE (08:00)
[2018-03-03] MEDS ORDERED: GLYCOPYRROLATE 0.2 MG/ML VIAL ONE (08:00)
[2018-03-03] MEDS ORDERED: SUCCINYLCHOLINE CHLORIDE 200 MG/10 ML VIAL IVP ONE (08:00)
[2018-03-03] MEDS ORDERED: BUPIVACAINE MPF 0.25% 10 ML VIAL INJ ONE (08:20)
[2018-03-03] MEDS ORDERED: MIDAZOLAM 2 MG/2 ML VIAL ONE (08:23)
[2018-03-03] MEDS ORDERED: MEPERIDINE 50 MG/ML SYR ONE (08:23)
[2018-03-03] MEDS ORDERED: fentaNYL 0.05 MG/ML VIAL ONE (08:23)
[2018-03-03] MEDS ORDERED: MEPERIDINE 50 MG/ML SYR IVP PRN (09:00)
[2018-03-03] MEDS ORDERED: MIDAZOLAM 2 MG/2 ML VIAL IVP ONE (09:00)
[2018-03-03] MEDS ORDERED: METOCLOPRAMIDE 10 MG/2 ML INJ VIAL IVP PRN (09:00)
[2018-03-03] MEDS: MEPERIDINE 50 MG/ML SYR IVP PRN ×2 (10:15→10:30)
[2018-03-03] MEDS ORDERED: METOCLOPRAMIDE 10 MG/2 ML INJ VIAL ONE (10:20)
[2018-03-03] MEDS ORDERED: MEPERIDINE 25 MG/ML SYR ONE ×2 (10:20→10:28)
[2018-03-03 10:49] VITALS: BP 98/59
--- NOTE | 2018-03-03 10:49 | NUR ---
PT BACK ON UNIT FROM OR. MOTHER AT BEDSIDE. NO S/S OF ACUTE DISTRESS. REPORT RECEIVED AT BEDSIDE. PT SLEEPING BUT AROUSABLE. CALL LIGHT WITHIN REACH. SAFETY MEASURES ENSURED. WILL CONTINUE TO MONITOR.
[2018-03-03 11:04] VITALS: BP 99/58
[2018-03-03] MEDS: DEXT 5% / NACL 0.45% 1,000 ML IV SCH ×2 (12:54→20:59)
[2018-03-03] MEDS: oxyCODONE/APAP 5/325 MG 1 TAB TAB PO PRN ×2 (15:26→20:57)
--- NOTE | 2018-03-03 15:45 | NUR ---
PT RESTING IN BED. NO S/S OF ACUTE DISTRESS. PREVIOUSLY MEDICATED FOR PAIN. CALL LIGHT WITHIN REACH. SAFETY MEASURES ENSURED. WILL CONTINUE TO MONITOR.
[2018-03-03 16:00] VITALS: BP 107/60
[2018-03-03] MEDS: MORPHINE SULFATE 2 MG/ML SYR IVP PRN ×2 (18:31→22:39)
--- NOTE | 2018-03-03 19:30 | NUR ---
RECEIVED BEDSIDE REPORT FROM DAY SHIFT NURSE MOSES RN, PT STABLE, NO DISTRESS NOTED, IV TO R FA 20G RUNNING D5 1/2 NS @ 100 ML/HR, PT ON ROOM AIR, NO SOB, STATED HAVING NO PAIN AT THIS MOMENT, INCISION SITE INTACT WITH DERMABOND, OPEN TO AIR, INITIAL ASSESSMENT DONE, ALL SAFETY PRECAUTION MET, WILL CONTINUE TO MONITOR.
--- NOTE | 2018-03-03 20:57 | NUR ---
PT STATED FEELING PAIN AFTER WALKING TO THE BATHROOM, 02/25, PAIN MEDICATION GIVEN, PT TOLERATED WELL, NO DISTRESS NOTED, CALL LIGHT WITHIN REACH, WILL CONTINUE TO MONITOR.
--- NOTE | 2018-03-03 22:39 | NUR ---
PT AMBULATED TO RESTROOM AND BACK TO BED, PT STATED PAIN 8/10 ON THE L INCISION SITE, INCISION SITE INTACT, PAIN MEDICATION GIVEN, PT TOLERATED WELL, NO DISTRESS NOTED, CALL LIGHT WITHIN REACH, WILL CONTINUE TO MONITOR.
[2018-03-04] VITALS: BP 103/55
--- NOTE | 2018-03-04 00:13 | NUR ---
PT STATED STILL HAVING PAIN, DR. NEGRETE NOTIFIED, ORDERED GABAPENTIN PO, MEDICATION ADMINISTERED TO PT, PT TOLERATED WELL, NO DISTRESS NOTED, CALL LIGHT WITHIN REACH, WILL CONTINUE TO MONITOR.
[2018-03-04] MEDS ORDERED: GABAPENTIN 300 MG CAP PO SCH ×2 (00:30)
[2018-03-04] MEDS: MORPHINE SULFATE 2 MG/ML SYR IVP PRN (03:16)
--- NOTE | 2018-03-04 03:16 | NUR ---
PT AMBULATED TO RESTROOM AND BACK TO BED, PT STATED FEELING PAIN 8/10, PAIN MEDICATION GIVEN, PT TOLERATED WELL, PT C/O IV FLUIDS, STATED THAT SHE DOES NOT WANT HER IV FLUIDS CONNECTED AND SHE JUST WANTS TO SLEEP, NOTIFIED DR. NEGRETE REGARDING PT C/O, STATED ITS OK TO PUT PT ON SL, WILL ORDER.
[2018-03-04] MEDS: DEXT 5% / NACL 0.45% 1,000 ML IV SCH (04:59)
--- NOTE | 2018-03-04 05:15 | NUR ---
CHECKED ON PT, PT SLEEPING, NO DISTRESS NOTED, CALL LIGHT WITHIN REACH, WILL CONTINUE TO MONITOR.
[2018-03-04 06:51] LABS: BASOPHILS % (AUTO) 0.5 % (0.0-2.0); EOSINOPHILS % (AUTO) 0.1 % (0.0-4.0); HEMATOCRIT 33.3 % (36-48); HEMOGLOBIN 11.4 g/dL (12.0-16.0); LYMPHOCYTES # (AUTO) 2.1 K/uL (2.5-16.5); LYMPHOCYTES % (AUTO) 23.1 % (20.5-51.1); MEAN CORPUSCULAR HEMOGLOBIN 30 pg (27-31); MEAN CORPUSCULAR HGB CONC 34 g/dL (33-37); MEAN CORPUSCULAR VOLUME 87.3 fL (80-94); MONOCYTES # (AUTO) 0.5 K/uL (0.8-1.0); MONOCYTES % (AUTO) 5.5 % (1.7-9.3); NEUTROPHILS # (AUTO) 6.4 K/uL (1.8-7.7); NEUTROPHILS % (AUTO) 70.8 % (42.2-75.2); PLATELET COUNT (AUTO) 296 K/uL (140-450); RED BLOOD CELL COUNT(AUTO) 3.82 MIL/uL (4.20-5.40); RED CELL DISTRIBUTION WIDTH 13.5 % (11.6-13.7); WHITE BLOOD COUNT (AUTO) 9.1 K/uL (4.8-10.8)
[2018-03-04 07:14] LABS: ALBUMIN 2.9 g/dL (3.4-5.0); ANION GAP 11.2 (8-16); CARBON DIOXIDE 26.8 mmol/L (21-32); CREATININE 0.6 mg/dL (0.6-1.3); TOTAL BILIRUBIN 0.3 mg/dL (0.0-1.0)
--- NOTE | 2018-03-04 07:17 | NUR ---
ENDORSED PT TO DAY SHIFT NURSE TRENT PT IN STABLE CONDITION, NO DISTRESS NOTED, CALL LIGHT WITHIN REACH.
--- NOTE | 2018-03-04 07:18 | NUR ---
RECEIVED REPORT FROM CORPORATE REPRESENTATIVE RN. PATIENT IS AAOX4, NO SIGNS AND SYMPTOMS OF ACUTE DISTRESS NOTED AT THIS TIME. HAS IV TO THE RIGHT WRIST 20G, ON SALINE LOCK. SITE IS CLEAN, DRY, PATENT AND INTACT. DISCUSSED PLAN OF CARE WITH PATIENT AND SHE VERBALIZED UNDERSTANDING. BED IS IN LOWEST POSITION, SIDE RAILS UP X2, CALL LIGHT PLACED WITHIN REACH. WILL CONTINUE TO MONITOR.
[2018-03-04 08:00] VITALS: BP 98/51
[2018-03-04] MEDS ORDERED: DOCU250C4 PO (08:41)
[2018-03-04] MEDS ORDERED: ACET-2863 PO (08:41)
[2018-03-04] MEDS: oxyCODONE/APAP 5/325 MG 1 TAB TAB PO PRN (09:36)
--- NOTE | 2018-03-04 11:40 | NUR ---
DISCHARGE INSTRUCTIONS ARE IN PLACE. GAVE PATIENT DISCHARGE INSTRUCTIONS AND EDUCATION OF CARING FOR HER INCISIONS. INFORMED HER THAT SHE HAS A PRESCRIPTION. PATIENT VERBALIZED UNDERSTANDING. REMOVED IV FROM SITE. CATHETER INTACT. SITE IS CLEAN AND DRY. ALL BELONGINGS ARE WITH PATIENT AND I REMOVED HER ID BANDS. PATIENT IS IN STABLE CONDITION. WILL WALK OUT WITH PATIENT
== END 2018-03-04 11:40 | disposition home or self-care (01) | DRG 263 ==
LOC: MED 11:31 → MTU 13:02
PROVIDERS: ADMIT General Practice; ATTEND General Practice
PROC: 0FT44ZZ Resection of Gallbladder, Percutaneous Endoscopic Approach (ICD-10-PCS; principal; 2018-03-03 08:00)
DX: K80.60 Calculus of gallbladder and bile duct with cholecystitis, unspecified, without obstruction (principal); E44.1 Mild protein-calorie malnutrition; I10 Essential (primary) hypertension; E83.51 Hypocalcemia; E11.9 Type 2 diabetes mellitus without complications; D64.9 Anemia, unspecified; E66.9 Obesity, unspecified; Z79.899 Other long term (current) drug therapy; J45.909 Unspecified asthma, uncomplicated; M51.26 Other intervertebral disc displacement, lumbar region; Z68.33 Body mass index [BMI] 33.0-33.9, adult
CPT/HCPCS: 36415; 71045; 76705; 78445; 80048; 80053; 80305; 81001; 81025; 83036; 83690; 83735; 83880; 84100; 84436; 84443; 84479; 84484; 85025; 85610; 85730; 86886; 86900; 86901; 87081; 94640; 96361; 96374; 96375; 99285; J0330; J0690; J1100; J1885; J2175; J2250; J2270; J2405; J2704; J2710; J2765; J3010; J3490; J7030; Q0092

== ENCOUNTER 2018-03-21 21:17 | Emergency (ER) | payer MEDICAID ==
[~2018-03-21] VITALS: Ht 154.9 cm; Wt 71.8 kg
[~2018-03-21 21:17] MED LIST changes: +ACET-2863 PO
[2018-03-21 21:20] VITALS: BP 140/63
--- NOTE | 2018-03-21 21:29 | NUR ---
PT TAKEN TO BED 2
--- NOTE | 2018-03-21 21:33 | NUR ---
SPOKE WITH WIRELINE FIELD OPERATOR [id number] FROM [facility], STATES " IF PT IS BEING ADMITTED WE CAN SEND AN OFFICER OUT OR SHE CAN COME TO OUR STATION IF SHE IS BEING DISCHARGED.
--- NOTE | 2018-03-21 21:33 | NUR ---
Dr. Padgett evaluating patient at bedside.
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
[2018-03-21] MEDS ORDERED: NACL 0.9% 1,000 ML IV ONE (21:40)
--- NOTE | 2018-03-21 21:50 | NUR ---
Pelvic exam performed by DR BUSH with MYSELF at bedside for entire examination. Patient tolerated procedure WELL. Patient assisted to position of comfort after examination.
[2018-03-21 22:02] LABS: BASOPHILS # (AUTO) 0.1 K/uL (0.00-0.22); BASOPHILS % (AUTO) 1.3 % (0.0-2.0); EOSINOPHILS # (AUTO) 0.2 K/uL (0-0.4); EOSINOPHILS % (AUTO) 3.2 % (0.0-4.0); HEMATOCRIT 37.2 % (36-48); HEMOGLOBIN 12.5 g/dL (12.0-16.0); LYMPHOCYTES # (AUTO) 2.5 K/uL (2.5-16.5); LYMPHOCYTES % (AUTO) 32.3 % (20.5-51.1); MEAN CORPUSCULAR HEMOGLOBIN 29 pg (27-31); MEAN CORPUSCULAR HGB CONC 34 g/dL (33-37); MEAN CORPUSCULAR VOLUME 87.4 fL (80-94); MONOCYTES # (AUTO) 0.6 K/uL (0.8-1.0); MONOCYTES % (AUTO) 7.6 % (1.7-9.3); NEUTROPHILS # (AUTO) 4.3 K/uL (1.8-7.7); NEUTROPHILS % (AUTO) 55.6 % (42.2-75.2); PLATELET COUNT (AUTO) 278 K/uL (140-450); RED BLOOD CELL COUNT(AUTO) 4.25 MIL/uL (4.20-5.40); RED CELL DISTRIBUTION WIDTH 13.3 % (11.6-13.7); WHITE BLOOD COUNT (AUTO) 7.7 K/uL (4.8-10.8)
[2018-03-21 22:16] LABS: BARBITURATE, URINE NEG. ng/ml (NEG <=200); BENZODIAZEPINE, URINE NEG. ng/mL (NEG <=200); CANNABINOID, URINE NEG. ng/mL (NEG <=50); COCAINE, URINE NEG. ng/mL (NEG <=300); OPIATE, URINE NEG. ng/mL (NEG <=2000); PHENCYCLIDINE SCREEN,URINE NEG. ng/mL (NEG <=25)
[2018-03-21 22:22] LABS: APPEARANCE,URINE SL CLOUDY (CLEAR); BILIRUBIN,URINE NEGATIVE (NEGATIVE); BLOOD, URINE NEGATIVE (NEGATIVE); COLOR,URINE YELLOW (YELLOW); LEUKOCYTE ESTERASE ,URINE NEGATIVE (NEGATIVE); NITRITE, URINE NEGATIVE (NEGATIVE); UGLUCOSE NEGATIVE (NEGATIVE)
[2018-03-21 22:25] LABS: ALBUMIN 3.4 g/dL (3.4-5.0); ANION GAP 11.5 (8-16); ASPARTATE AMINOTRANSFERASE 9 U/L (15-37); CHLORIDE 105 mmol/L (98-107); CREATININE 0.7 mg/dL (0.6-1.3); GFR ARICAN-AMERICAN 130 mL/min (>90); GLUCOSE 95 mg/dL (74-106); POTASSIUM 3.5 mmol/L (3.5-5.1); SODIUM SERUM 138 mmol/L (136-145); TOTAL BILIRUBIN 0.2 mg/dL (0.0-1.0); UREA NITROGEN, BLOOD 9 mg/dL (7-18)
[2018-03-21 22:30] LABS: ACETAMINOPHEN < 0.5 ug/ml (10-30); SALICYLATE < 2.8 mg/dL (2.8-20.0)
[2018-03-21] MEDS ORDERED: AZITHROMYCIN 250 MG TAB PO ONE (22:40)
[2018-03-21] MEDS ORDERED: cefTRIAXone 250 MG in LIDOCAINE MPF 1% - **ER/OR** 0.9 ML IM ONE (22:40)
[2018-03-21] MEDS ORDERED: metroNIDAZOLE 250 MG TAB PO ONE (22:40)
[2018-03-21 23:16] VITALS: BP 125/66
--- NOTE | 2018-03-21 23:16 | NUR ---
Patient discharged with v/s stable. Written and verbal after care instructions given and explained. Patient alert, oriented and verbalized understanding of instructions. Ambulatory with steady gait. All questions addressed prior to discharge. ID band removed. Patient advised to follow up with PMD. Rx of FLAGYL given. Patient educated on indication of medication including possible reaction and side effects. Opportunity to ask questions provided and answered.
[2018-03-25 05:36] LABS: CHLAMYDIA TRACHOMATIS AMP DNA Equivocal (Negative)
== END 2018-03-21 23:16 | disposition home or self-care (01) ==
LOC: MED 21:17
DX: N76.0 Acute vaginitis (principal); B96.89 Other specified bacterial agents as the cause of diseases classified elsewhere; F12.10 Cannabis abuse, uncomplicated; R53.1 Weakness; Z59.0 Homelessness
CPT/HCPCS: 36415; 80053; 80305; 81003; 81025; 85025; 86592; 86703; 87210; 87491; 96372; 99284; G0480; G0482; J0696; J2001

== ENCOUNTER 2018-07-04 13:02 | Emergency (ER) | payer MEDICAID ==
[~2018-07-04] VITALS: Ht 152.4 cm; Wt 77.1 kg
[2018-07-04 13:09] VITALS: BP 116/64
--- NOTE | 2018-07-04 13:55 | NUR ---
PT TO BED 11
--- NOTE | 2018-07-04 14:00 | NUR ---
28 YO F BIB SELF FOR L GROIN PAIN X1WK. NODUAL NOTED MINOR SWELLING NO DRAINAGE, NON OPEN, -REDNESS, TENDER TO TOUCH. - N/V/D, -PAIN OR BURNING WITH URINATION PT DENIES ANY OTHER MEDICAL C/O AT THIS TIME. WILL CONTINUE TO MONITOR. ER MADE AWARE.
[2018-07-04 15:43] VITALS: BP 116/64
--- NOTE | 2018-07-04 15:44 | NUR ---
Patient discharged with v/s stable. Written and verbal after care instructions given and explained. Patient alert, oriented and verbalized understanding of instructions. Ambulatory with steady gait. All questions addressed prior to discharge. ID band removed. Patient advised to follow up with PMD. Rx of MDOXYCYCLINE, BENADRYL, IBUPROFEN, NORCO given. Patient educated on indication of medication including possible reaction and side effects. Opportunity to ask questions provided and answered.
== END 2018-07-04 15:44 | disposition home or self-care (01) ==
LOC: MED 13:02
DX: L04.1 Acute lymphadenitis of trunk (principal); R21 Rash and other nonspecific skin eruption; J45.909 Unspecified asthma, uncomplicated; Z79.899 Other long term (current) drug therapy; Z79.1 Long term (current) use of non-steroidal anti-inflammatories (NSAID)
CPT/HCPCS: 99283

== ENCOUNTER 2018-07-05 15:03 | Emergency (ER) | payer MEDICAID ==
[~2018-07-05] VITALS: Ht 152.4 cm; Wt 78.0 kg
[2018-07-05 15:15] VITALS: BP 112/60
--- NOTE | 2018-07-05 15:17 | NUR ---
PT AMBULATES TO BED 4
--- NOTE | 2018-07-05 15:28 | NUR ---
28 yo f bib self with c/o pruritic rash generalized over body x 2 days, progressively getting worse. Patient seen here yesterday. Sent home with Benadryl, Doxycycline, Ibuprofen, and [place]. Patient sts subjective fevers. No angioedema noted. aaox4, gcs 15. cms intact. rr even and unlabored, lungs bl clear. abd soft, non-tender. ambulatory w/ steady gait. er md notified. pt needs met, safety precautions in place. will continue to monitor.
[2018-07-05] MEDS ORDERED: methylPREDNISolone 4 MG TAB PO SCH (16:15)
[2018-07-05] MEDS ORDERED: predniSONE 10 MG TAB PO ONE (16:25)
[2018-07-05] MEDS ORDERED: diphenhydrAMINE 50 MG CAP PO ONE (16:50)
[2018-07-05] MEDS ORDERED: methylPREDNISolone SS 125 MG/2 ML VIAL IM ONE (16:50)
[2018-07-05 17:58] VITALS: BP 112/72
--- NOTE | 2018-07-05 17:59 | NUR ---
Patient discharged with v/s stable. Written and verbal after care instructions given and explained. Patient alert, oriented and verbalized understanding of instructions. Ambulatory with steady gait. All questions addressed prior to discharge. ID band removed. Patient advised to follow up with PMD. Rx of prednisone 4mg. pack given. Patient educated on indication of medication including possible reaction and side effects. Opportunity to ask questions provided and answered.
== END 2018-07-05 17:59 | disposition home or self-care (01) ==
LOC: MED 15:03
DX: T78.49XA Other allergy, initial encounter (principal); I88.8 Other nonspecific lymphadenitis; J45.909 Unspecified asthma, uncomplicated; Z79.899 Other long term (current) drug therapy; X58.XXXA Exposure to other specified factors, initial encounter
CPT/HCPCS: 96372; 99283; J2930; Q0163

== ENCOUNTER 2019-06-27 19:57 | Emergency (ER) | payer MEDICAID ==
[~2019-06-27] VITALS: Ht 154.9 cm; Wt 97.1 kg
[~2019-06-27 19:57] MED LIST changes: -ACET-2863 PO; +HYDR-5123 PO
[2019-06-27 20:08] VITALS: BP 108/55
--- NOTE | 2019-06-27 20:14 | NUR ---
PT AMBULATED TO BED #5
--- NOTE | 2019-06-27 20:22 | NUR ---
Dr. Christianson examining patient.
--- NOTE | 2019-06-27 20:28 | NUR ---
PT 9 WEEKS . C/O VAGINAL BLEEDING, PINK WATERY X1 DAY. LOWER ABD CRAMPING X1 DAY. PT STATES VAGINAL DISCHARGE, CLEAR AND WATERY W/ FOUL SMELL X 1 DAY. PT DENIES N/V/D. ABD SOFT, ROUND, NONTENDER TO PALP. BOWEL SOUNDS PRESENT X4 QUAD. VSS AT THIS TIME. PT SITTING IN BED, CALM AND PLEASANT. NO FURTHER COMPLAINTS. PT STATES SHE HAS NOT TAKEN ANY MEDICATIONS. MEDHX: DENIES ALLERGIES: DENIES
[2019-06-27 20:40] LABS: BASOPHILS % (AUTO) 0.5 % (0.0-2.0); EOSINOPHILS % (AUTO) 0.4 % (0.0-4.0); HEMATOCRIT 38.2 % (36-48); HEMOGLOBIN 12.7 g/dL (12.0-16.0); LYMPHOCYTES # (AUTO) 2.6 K/uL (2.5-16.5); LYMPHOCYTES % (AUTO) 25.3 % (20.5-51.1); MEAN CORPUSCULAR HEMOGLOBIN 30 pg (27-31); MEAN CORPUSCULAR HGB CONC 33 g/dL (33-37); MEAN CORPUSCULAR VOLUME 90.4 fL (80-94); MONOCYTES # (AUTO) 0.6 K/uL (0.8-1.0); MONOCYTES % (AUTO) 5.7 % (1.7-9.3); NEUTROPHILS % (AUTO) 68.1 % (42.2-75.2); PLATELET COUNT (AUTO) 287 K/uL (140-450); RED BLOOD CELL COUNT(AUTO) 4.23 MIL/uL (4.20-5.40); RED CELL DISTRIBUTION WIDTH 13.3 % (11.6-13.7); WHITE BLOOD COUNT (AUTO) 10.2 K/uL (4.8-10.8)
[2019-06-27 20:52] LABS: BILIRUBIN,URINE NEGATIVE (NEGATIVE); BLOOD, URINE NEGATIVE (NEGATIVE); COLOR,URINE YELLOW (YELLOW); LEUKOCYTE ESTERASE ,URINE NEGATIVE (NEGATIVE); NITRITE, URINE NEGATIVE (NEGATIVE); UGLUCOSE NEGATIVE (NEGATIVE)
[2019-06-27 20:53] LABS: APPEARANCE,URINE CLEAR (CLEAR)
--- NOTE | 2019-06-27 21:49 | NUR ---
PT RESTING IN BED, VSS AT THIS TIME. WILL CONTINUE TO MONITOR
--- NOTE | 2019-06-27 21:54 | NUR ---
Patient discharged with v/s stable. Written and verbal after care instructions given and explained. Patient verbalized understanding. Ambulatory with to home. All questions addressed prior to discharge. Advised to follow up with PMD.
[2019-06-27 21:55] VITALS: BP 108/55
== END 2019-06-27 21:54 | disposition home or self-care (01) ==
LOC: MED 19:57
DX: O20.0 Threatened abortion (principal); O26.891 Other specified pregnancy related conditions, first trimester; J45.909 Unspecified asthma, uncomplicated; Z3A.08 8 weeks gestation of pregnancy; Z79.1 Long term (current) use of non-steroidal anti-inflammatories (NSAID); Z79.2 Long term (current) use of antibiotics; Z79.899 Other long term (current) drug therapy; Z79.891 Long term (current) use of opiate analgesic; Z90.49 Acquired absence of other specified parts of digestive tract
CPT/HCPCS: 36415; 76817; 81003; 81025; 84702; 85025; 86900; 86901; 99284; Q0092

== ENCOUNTER 2019-08-05 11:13 | Emergency (ER) | payer MEDICAID ==
[~2019-08-05] VITALS: Ht 154.9 cm; Wt 94.3 kg
[2019-08-05 11:24] VITALS: BP 130/80
--- NOTE | 2019-08-05 11:24 | NUR ---
PATIENT AMBULATED TO BED 9 AT THIS TIME.
--- NOTE | 2019-08-05 11:42 | NUR ---
US set up at bedside for Dr. Lion.
--- NOTE | 2019-08-05 12:04 | NUR ---
29 Y/O FEMALE PRESENTING WITH C/C OF VAGINAL BLEEDING. PER PATIENT MONDAY SHE HAD HEAVY VAGINAL BLEEDING; MONDAY JUST SPOTTING; COMPLAINTS OF NO ABD PAIN AND NO MEDICAL HX. DENIES N/V/D. SIDE RAIL X1.
--- NOTE | 2019-08-05 12:28 | NUR ---
PT STATES SHE HAS TO LEAVE BECAUSE HER HAS TO GO TO WORK. PT REQUESTING TO BE DISCHARGED. NO BLOOD DRAWN HAS BEEN PERFORMED. PT ASKED TO WAIT FOR DR. MCARTHUR.
--- NOTE | 2019-08-05 12:40 | NUR ---
LAB AT BEDSIDE
[2019-08-05 12:58] VITALS: BP 130/80
--- NOTE | 2019-08-05 12:58 | NUR ---
Patient does not wish to proceed with medical care recommended by DR MCARTHUR. Patient given information related to possible complications, up to and including , which could occur as a result of leaving hospital at this time. Patient verbalizes understanding of risks involved leaving against medical advice. Patient has signed AMA form.
[2019-08-05 13:06] LABS: BASOPHILS % (AUTO) 0.2 % (0.0-2.0); EOSINOPHILS % (AUTO) 0.2 % (0.0-4.0); HEMATOCRIT 40.8 % (36-48); HEMOGLOBIN 13.5 g/dL (12.0-16.0); LYMPHOCYTES # (AUTO) 1.4 K/uL (2.5-16.5); LYMPHOCYTES % (AUTO) 15.7 % (20.5-51.1); MEAN CORPUSCULAR HEMOGLOBIN 30 pg (27-31); MEAN CORPUSCULAR HGB CONC 33 g/dL (33-37); MEAN CORPUSCULAR VOLUME 89.1 fL (80-94); MONOCYTES # (AUTO) 0.4 K/uL (0.8-1.0); NEUTROPHILS # (AUTO) 7.4 K/uL (1.8-7.7); NEUTROPHILS % (AUTO) 79.9 % (42.2-75.2); PLATELET COUNT (AUTO) 289 K/uL (140-450); RED BLOOD CELL COUNT(AUTO) 4.57 MIL/uL (4.20-5.40); RED CELL DISTRIBUTION WIDTH 13.3 % (11.6-13.7); WHITE BLOOD COUNT (AUTO) 9.2 K/uL (4.8-10.8)
== END 2019-08-05 12:58 | disposition left against medical advice (07) ==
LOC: MED 11:13
DX: O20.0 Threatened abortion (principal); J45.909 Unspecified asthma, uncomplicated; Z3A.14 14 weeks gestation of pregnancy; Z90.49 Acquired absence of other specified parts of digestive tract; Z79.899 Other long term (current) drug therapy
CPT/HCPCS: 36415; 81002; 85025; 86900; 86901; 99283

== ENCOUNTER 2019-08-31 15:09 | Emergency (ER) | payer MEDICAID ==
[~2019-08-31] VITALS: Ht 154.9 cm; Wt 93.4 kg
[2019-08-31 15:18] VITALS: BP 109/60
--- NOTE | 2019-08-31 15:18 | NUR ---
TO BED # 04 AMBULATORY
--- NOTE | 2019-08-31 15:40 | NUR ---
29/F C/O VAG BLEEDING WITH BLOOD CLOTS, LOWER ABD PAIN, RADIATING TO HER BACK STARTED AT 12NOON TODAY, 17 WEEKS, LMP APR 29 SAW RED BLOOD IN TOILET BOWL X 1 WITH SMALL CLOTS, GUSH OF BLOOD X1, THEN BLOOD NOTED ON TOILET PAPER THEREAFTER. NOT USING PADS, DOES NOT HAVE PADS AT HOME. SUPRAPUBLIC/PELVIC PAIN X TODAY, INTERMITTENT, SHARP, 8/10 HX-ASTHMA
--- NOTE | 2019-08-31 15:42 | NUR ---
DR. BUSH EVALUATING PT AT BEDSIDE.
[2019-08-31] MEDS ORDERED: ACETAMINOPHEN EXTRA STRENGTH 500 MG TAB PO ONE (15:45)
--- NOTE | 2019-08-31 15:54 | NUR ---
PT SUPINE NOW, U/S AT BEDSIDE. WILL ADMIN ORDERED TYLENOL WHEN U/S COMPLETE.
--- NOTE | 2019-08-31 16:21 | NUR ---
PHLEB AT BEDSIDE FOR BLOOD DRAW
[2019-08-31 16:27] LABS: APPEARANCE,URINE SL CLOUDY (CLEAR); BILIRUBIN,URINE NEGATIVE (NEGATIVE); BLOOD, URINE 3+ (NEGATIVE); COLOR,URINE YELLOW (YELLOW); LEUKOCYTE ESTERASE ,URINE NEGATIVE (NEGATIVE); NITRITE, URINE NEGATIVE (NEGATIVE); UGLUCOSE NEGATIVE (NEGATIVE)
[2019-08-31 16:31] LABS: BASOPHILS # (AUTO) 0.1 K/uL (0.00-0.22); BASOPHILS % (AUTO) 0.7 % (0.0-2.0); EOSINOPHILS % (AUTO) 0.4 % (0.0-4.0); HEMATOCRIT 39.5 % (36-48); HEMOGLOBIN 13.3 g/dL (12.0-16.0); LYMPHOCYTES # (AUTO) 1.7 K/uL (2.5-16.5); LYMPHOCYTES % (AUTO) 19.9 % (20.5-51.1); MEAN CORPUSCULAR HEMOGLOBIN 30 pg (27-31); MEAN CORPUSCULAR HGB CONC 34 g/dL (33-37); MEAN CORPUSCULAR VOLUME 88.2 fL (80-94); MONOCYTES # (AUTO) 0.5 K/uL (0.8-1.0); MONOCYTES % (AUTO) 5.6 % (1.7-9.3); NEUTROPHILS # (AUTO) 6.3 K/uL (1.8-7.7); NEUTROPHILS % (AUTO) 73.4 % (42.2-75.2); PLATELET COUNT (AUTO) 267 K/uL (140-450); RED BLOOD CELL COUNT(AUTO) 4.47 MIL/uL (4.20-5.40); RED CELL DISTRIBUTION WIDTH 13.6 % (11.6-13.7); WHITE BLOOD COUNT (AUTO) 8.6 K/uL (4.8-10.8)
[2019-08-31 16:57] LABS: ALBUMIN 2.8 g/dL (3.4-5.0); CARBON DIOXIDE 22.8 mmol/L (21-32); CREATININE 0.7 mg/dL (0.6-1.3); POTASSIUM 3.8 mmol/L (3.5-5.1); TOTAL BILIRUBIN 0.4 mg/dL (0.0-1.0)
[2019-08-31 17:21] LABS: WBC,URINE NONE SEEN /HPF (0-5)
--- NOTE | 2019-08-31 17:37 | NUR ---
DR. BUSH SPEAKING WITH PT AT BEDSIDE.
[2019-08-31 17:51] VITALS: BP 117/69
== END 2019-08-31 17:50 | disposition home or self-care (01) ==
LOC: MED 15:09
DX: O20.0 Threatened abortion (principal); Z3A.17 17 weeks gestation of pregnancy; O99.512 Diseases of the respiratory system complicating pregnancy, second trimester; J45.909 Unspecified asthma, uncomplicated; Z79.899 Other long term (current) drug therapy; Z79.1 Long term (current) use of non-steroidal anti-inflammatories (NSAID); Z79.891 Long term (current) use of opiate analgesic
CPT/HCPCS: 36415; 76805; 80053; 81001; 84702; 85025; 86900; 86901; 99284; Q0092

== ENCOUNTER 2019-09-02 12:44 | Emergency (ER) | payer MEDICAID ==
--- NOTE | 2019-09-02 13:30 | NUR ---
no answer in er lobby
--- NOTE | 2019-09-02 14:31 | NUR ---
no answer in er lobby
== END 2019-09-02 14:31 | disposition left against medical advice (07) ==
LOC: MED 12:44
DX: O26.892 Other specified pregnancy related conditions, second trimester (principal); Z53.21 Procedure and treatment not carried out due to patient leaving prior to being seen by health care provider; Z3A.18 18 weeks gestation of pregnancy

== ENCOUNTER 2019-11-12 14:33 | Emergency (ER) | payer MEDICAID ==
[~2019-11-12] VITALS: Ht 154.9 cm; Wt 95.3 kg
[2019-11-12 14:38] VITALS: BP 128/96
--- NOTE | 2019-11-12 14:50 | NUR ---
PT TRIAGED, AMBULATED TO BED
--- NOTE | 2019-11-12 14:54 | NUR ---
pt is 28 weeks , c/o intermittent CP and SOB, mild dizziness and palpitations, since last night. reports midsternal pressure-like pain, also intermittent lower abd cramping, denies vaginal bleeding/discharge. Onset of CP while lying down last night. Pain less intense when HOB elevated. Worse when supine. VSS hx asthma, cholecystectomy 1 Para 0 LMP Apr 29, EDC February 02 rx albuterol inh without relief
[2019-11-12] MEDS: ALBUTEROL 0.083% 2.5 MG/3 ML NEBU INH ONE (15:32)
[2019-11-12] MEDS: IPRATROPIUM 0.02% 0.5 MG/2.5 ML NEBU INH ONE (15:32)
[2019-11-12 15:54] LABS: BASOPHILS % (AUTO) 0.2 % (0.0-2.0); EOSINOPHILS % (AUTO) 0.1 % (0.0-4.0); HEMATOCRIT 40.6 % (36-48); HEMOGLOBIN 13.2 g/dL (12.0-16.0); LYMPHOCYTES # (AUTO) 1.7 K/uL (2.5-16.5); LYMPHOCYTES % (AUTO) 21.9 % (20.5-51.1); MEAN CORPUSCULAR HEMOGLOBIN 29 pg (27-31); MEAN CORPUSCULAR HGB CONC 33 g/dL (33-37); MONOCYTES # (AUTO) 0.5 K/uL (0.8-1.0); MONOCYTES % (AUTO) 6.6 % (1.7-9.3); NEUTROPHILS # (AUTO) 5.5 K/uL (1.8-7.7); NEUTROPHILS % (AUTO) 71.2 % (42.2-75.2); PLATELET COUNT (AUTO) 254 K/uL (140-450); RED BLOOD CELL COUNT(AUTO) 4.51 MIL/uL (4.20-5.40); RED CELL DISTRIBUTION WIDTH 14.1 % (11.6-13.7); WHITE BLOOD COUNT (AUTO) 7.7 K/uL (4.8-10.8)
--- NOTE | 2019-11-12 15:54 | NUR ---
US AT BEDSIDE
[2019-11-12 16:15] LABS: ALBUMIN 2.7 g/dL (3.4-5.0); ANION GAP 14.6 (8-16); CARBON DIOXIDE 23.3 mmol/L (21-32); CREATININE 0.4 mg/dL (0.6-1.3); POTASSIUM 3.9 mmol/L (3.5-5.1); TOTAL BILIRUBIN 0.4 mg/dL (0.0-1.0)
[2019-11-12 16:26] LABS: PROTHROMBIN TIME 9.4 secs (10.8-13.4)
[2019-11-12 17:16] VITALS: BP 122/88
== END 2019-11-12 17:16 | disposition home or self-care (01) ==
LOC: MED 14:33
DX: O99.512 Diseases of the respiratory system complicating pregnancy, second trimester (principal); J45.909 Unspecified asthma, uncomplicated; R07.89 Other chest pain; Z79.899 Other long term (current) drug therapy; Z90.49 Acquired absence of other specified parts of digestive tract; Z3A.28 28 weeks gestation of pregnancy
CPT/HCPCS: 36415; 71045; 80053; 83880; 84484; 85025; 85610; 85730; 93005; 93970; 94640; 99285; J7613; J7644; Q0092

== ENCOUNTER 2019-12-15 19:00 | Inpatient (IN) | payer MEDICAID ==
[~2019-12-15] VITALS: Ht 157.5 cm; Wt 104.3 kg
[2019-12-15] MEDS ORDERED: PREN-380 PO (20:13)
[2019-12-15 21:30] LABS: BASOPHILS # (AUTO) 0.1 K/uL (0.00-0.22); BASOPHILS % (AUTO) 0.6 % (0.0-2.0); EOSINOPHILS % (AUTO) 0.3 % (0.0-4.0); HEMATOCRIT 41.1 % (36-48); HEMOGLOBIN 13.7 g/dL (12.0-16.0); LYMPHOCYTES # (AUTO) 2.1 K/uL (2.5-16.5); LYMPHOCYTES % (AUTO) 25.2 % (20.5-51.1); MEAN CORPUSCULAR HEMOGLOBIN 30 pg (27-31); MEAN CORPUSCULAR HGB CONC 33 g/dL (33-37); MEAN CORPUSCULAR VOLUME 90.1 fL (80-94); MONOCYTES # (AUTO) 0.4 K/uL (0.8-1.0); MONOCYTES % (AUTO) 4.7 % (1.7-9.3); NEUTROPHILS # (AUTO) 5.9 K/uL (1.8-7.7); NEUTROPHILS % (AUTO) 69.2 % (42.2-75.2); PLATELET COUNT (AUTO) 261 K/uL (140-450); RED BLOOD CELL COUNT(AUTO) 4.57 MIL/uL (4.20-5.40); RED CELL DISTRIBUTION WIDTH 14.5 % (11.6-13.7); WHITE BLOOD COUNT (AUTO) 8.5 K/uL (4.8-10.8)
[2019-12-15 21:33] LABS: APPEARANCE,URINE HAZY (CLEAR); BILIRUBIN,URINE NEGATIVE (NEGATIVE); BLOOD, URINE NEGATIVE (NEGATIVE); COLOR,URINE YELLOW (YELLOW); LEUKOCYTE ESTERASE ,URINE NEGATIVE (NEGATIVE); NITRITE, URINE NEGATIVE (NEGATIVE); PH,URINE 5.5 (5.0-9.0); UGLUCOSE NEGATIVE (NEGATIVE)
[2019-12-15 21:48] LABS: ALBUMIN 2.8 g/dL (3.4-5.0); ANION GAP 13.7 (8-16); CREATININE 0.6 mg/dL (0.6-1.3); POTASSIUM 3.7 mmol/L (3.5-5.1); TOTAL BILIRUBIN 0.4 mg/dL (0.0-1.0)
[2019-12-15] MEDS ORDERED: MAG SULF 20 GM/H2O PREMIX DRIP 500 ML IV SCH (22:25)
[2019-12-15] MEDS ORDERED: BETAMETH ACET/BETAMETH NA PH 30 MG/5 ML VIAL IM ONE ×2 (22:25→23:53)
[2019-12-15] MEDS ORDERED: MAG SULF 2000 MG/WATER PREMIX 50 ML IV ONE (23:37)
[2019-12-16] MEDS: LACTATED RINGERS 1,000 ML IV SCH ×2 (01:45→13:49)
[2019-12-16] MEDS ORDERED: fentaNYL 0.05 MG/ML VIAL ONE (04:39)
[2019-12-16] MEDS: fentaNYL 0.05 MG/ML VIAL IVP PRN ×3 (04:50→22:03)
[2019-12-16] MEDS ORDERED: ACETAMINOPHEN EXTRA STRENGTH 500 MG TAB PO PRN (06:45)
--- NOTE | 2019-12-16 08:59 | NUR ---
PATIENT HAS BEEN SCREENED AND CATEGORIZED LOW NUTRITION RISK. PATIENT WILL BE SEEN WITHIN 7 DAYS OF ADMISSION. 12/22/[address]
[2019-12-17] MEDS ORDERED: BETAMETH ACET/BETAMETH NA PH 30 MG/5 ML VIAL IM ONE (00:05)
[2019-12-17] MEDS: LACTATED RINGERS 1,000 ML IV SCH (02:46)
== END 2019-12-17 09:20 | disposition home or self-care (01) | DRG 566 ==
LOC: MLD 19:00 → OBSVTOIN 22:31
PROVIDERS: ADMIT Obstetrics & Gynecology; ATTEND Obstetrics & Gynecology
DX: O99.513 Diseases of the respiratory system complicating pregnancy, third trimester (principal); J45.909 Unspecified asthma, uncomplicated; O60.03 Preterm labor without delivery, third trimester; Z3A.32 32 weeks gestation of pregnancy
CPT/HCPCS: G0378 ×4; 36415; 76817; 76819; 80053; 81003; 85025; 86886; 86900; 86901; J0702; J3010; J3475; J7120; Q0092

== ENCOUNTER 2020-01-14 | Emergency (ER) | payer MEDICAID ==
[~2020-01-14] VITALS: Ht 154.9 cm; Wt 104.3 kg
[~2020-01-14] MED LIST changes: +PREN-380 PO
[2020-01-14 00:06] VITALS: BP 113/58
[2020-01-14 00:22] VITALS: BP 113/58
--- NOTE | 2020-01-14 00:23 | NUR ---
PT SEEN AND EVALUATED BY JOSSELYN NEVES. NO NURSING INTERVENTIONS REQUIRED
== END 2020-01-14 00:22 | disposition home or self-care (01) ==
LOC: MED
DX: O12.02 Gestational edema, second trimester (principal); J45.909 Unspecified asthma, uncomplicated; Z79.899 Other long term (current) drug therapy
CPT/HCPCS: 99281

== ENCOUNTER 2020-01-20 21:35 | Inpatient (IN) | payer MEDICAID ==
[~2020-01-20] VITALS: Ht 154.9 cm; Wt 108.9 kg
[2020-01-20] MEDS ORDERED: LACTATED RINGERS 1,000 ML IV SCH (22:17)
[2020-01-20] MEDS ORDERED: AMPICILLIN 2,000 MG in NACL 0.9% MINI-BAG PLUS 100 ML IV SCH (22:20)
[2020-01-20] MEDS ORDERED: OXYTOCIN 20 UNITS in LACTATED RINGERS 1,000 ML IV SCH (22:20)
[2020-01-20] MEDS ORDERED: METHYLERGONOVINE 0.2 MG/ML AMP IM PRN (22:20)
[2020-01-20 22:55] LABS: BASOPHILS % (AUTO) 0.3 % (0.0-2.0); EOSINOPHILS % (AUTO) 0.2 % (0.0-4.0); HEMATOCRIT 38.4 % (36-48); HEMOGLOBIN 12.8 g/dL (12.0-16.0); LYMPHOCYTES # (AUTO) 1.8 K/uL (2.5-16.5); LYMPHOCYTES % (AUTO) 21.9 % (20.5-51.1); MEAN CORPUSCULAR HEMOGLOBIN 30 pg (27-31); MEAN CORPUSCULAR HGB CONC 34 g/dL (33-37); MEAN CORPUSCULAR VOLUME 89.8 fL (80-94); MONOCYTES # (AUTO) 0.5 K/uL (0.8-1.0); MONOCYTES % (AUTO) 5.8 % (1.7-9.3); NEUTROPHILS % (AUTO) 71.8 % (42.2-75.2); PLATELET COUNT (AUTO) 224 K/uL (140-450); RED BLOOD CELL COUNT(AUTO) 4.27 MIL/uL (4.20-5.40); RED CELL DISTRIBUTION WIDTH 14.4 % (11.6-13.7); WHITE BLOOD COUNT (AUTO) 8.3 K/uL (4.8-10.8)
[2020-01-20 23:07] LABS: APPEARANCE,URINE SL CLOUDY (CLEAR); BILIRUBIN,URINE NEGATIVE (NEGATIVE); BLOOD, URINE NEGATIVE (NEGATIVE); COLOR,URINE YELLOW (YELLOW); LEUKOCYTE ESTERASE ,URINE NEGATIVE (NEGATIVE); NITRITE, URINE NEGATIVE (NEGATIVE); UGLUCOSE NEGATIVE (NEGATIVE)
[2020-01-20] MEDS ORDERED: AMPICILLIN 2,000 MG VIAL ONE (23:07)
[2020-01-20 23:22] LABS: ALBUMIN 2.6 g/dL (3.4-5.0); ANION GAP 14.2 (8-16); CARBON DIOXIDE 22.3 mmol/L (21-32); CREATININE 0.8 mg/dL (0.6-1.3); POTASSIUM 3.5 mmol/L (3.5-5.1); TOTAL BILIRUBIN 0.4 mg/dL (0.0-1.0)
[2020-01-21] MEDS: MISOPROSTOL 25 MCG TAB VG PRN ×2 (00:05→06:14)
[2020-01-21 00:41] VITALS: BP 134/67
[2020-01-21] MEDS: LACTATED RINGERS 1,000 ML IV SCH ×2 (01:35→15:14)
[2020-01-21] MEDS: fentaNYL 0.05 MG/ML VIAL IVP PRN ×5 (02:11→22:04)
[2020-01-21] MEDS ORDERED: AMPICILLIN 1,000 MG VIAL ONE ×6 (02:56→22:41)
[2020-01-21] MEDS: AMPICILLIN 1,000 MG in NACL 0.9% MINI-BAG PLUS 50 ML IV SCH ×5 (07:06→23:08)
--- NOTE | 2020-01-21 08:49 | NUR ---
PATIENT HAS BEEN SCREENED AND CATEGORIZED LOW NUTRITION RISK. PATIENT WILL BE SEEN WITHIN 7 DAYS OF ADMISSION. 01/27/[address]
[2020-01-21] MEDS ORDERED: LACTATED RINGERS 1,000 ML IV SCH (09:00)
[2020-01-21] MEDS ORDERED: OXYTOCIN 20 UNITS/LR PREMIX 1,000 ML IV ONE (12:05)
[2020-01-21] MEDS ORDERED: ONDANSETRON 4 MG/2 ML VIAL IVP PRN (23:00)
[2020-01-21] MEDS ORDERED: MORPHINE SULFATE 4 MG/ML SYR IVP PRN (23:00)
[2020-01-21] MEDS ORDERED: ONDANSETRON 4 MG/2 ML VIAL ONE (23:02)
[2020-01-21] MEDS ORDERED: MORPHINE SULFATE 10 MG/ML VIAL ONE (23:03)
[2020-01-22] MEDS ORDERED: MORPHINE SULFATE 10 MG/ML VIAL ONE ×2 (01:27→03:41)
[2020-01-22] MEDS ORDERED: AMPICILLIN 1,000 MG VIAL ONE (02:42)
[2020-01-22] MEDS: AMPICILLIN 1,000 MG in NACL 0.9% MINI-BAG PLUS 50 ML IV SCH (03:02)
[2020-01-22 03:48] VITALS: BP 173/74
[2020-01-22] MEDS ORDERED: IBUPROFEN 600 MG TAB PO PRN (05:45)
[2020-01-22] MEDS ORDERED: DOCUSATE SODIUM 100 MG GELCAP PO PRN (05:45)
[2020-01-22] MEDS ORDERED: IBUPROFEN 800 MG TAB PO PRN (05:45)
[2020-01-22] MEDS ORDERED: BISACODYL 5 MG TABEC PO PRN (05:45)
[2020-01-22] MEDS ORDERED: OXYTOCIN 10 UNITS/ML VIAL IM PRN (05:45)
[2020-01-22] MEDS ORDERED: METHYLERGONOVINE 0.2 MG TAB PO PRN (05:45)
[2020-01-22] MEDS ORDERED: MEASLES, MUMPS, AND RUBELLA 1 VIAL SQVAC PRN (05:45)
[2020-01-22] MEDS ORDERED: SIMETHICONE 80 MG TAB.CHEW PO PRN (05:45)
[2020-01-22] MEDS ORDERED: METHYLERGONOVINE 0.2 MG/ML AMP IM PRN (05:45)
[2020-01-22] MEDS ORDERED: BENZOCAINE/MENTHOL 20%-0.5% 60 GM CAN TP PRN (05:45)
[2020-01-23 07:21] LABS: HEMATOCRIT 32.1 % (36-48); HEMOGLOBIN 10.9 g/dL (12.0-16.0)
[2020-01-23] MEDS ORDERED: LABETALOL 100 MG TAB PO PRN (07:30)
[2020-01-23 07:38] LABS: BASOPHILS % (AUTO) 0.5 % (0.0-2.0); EOSINOPHILS % (AUTO) 0.4 % (0.0-4.0); HEMATOCRIT 32.9 % (36-48); LYMPHOCYTES # (AUTO) 2.8 K/uL (2.5-16.5); LYMPHOCYTES % (AUTO) 27.6 % (20.5-51.1); MEAN CORPUSCULAR HEMOGLOBIN 30 pg (27-31); MEAN CORPUSCULAR HGB CONC 33 g/dL (33-37); MEAN CORPUSCULAR VOLUME 90.7 fL (80-94); MONOCYTES # (AUTO) 0.5 K/uL (0.8-1.0); MONOCYTES % (AUTO) 5.3 % (1.7-9.3); NEUTROPHILS # (AUTO) 6.7 K/uL (1.8-7.7); NEUTROPHILS % (AUTO) 66.2 % (42.2-75.2); PLATELET COUNT (AUTO) 184 K/uL (140-450); RED BLOOD CELL COUNT(AUTO) 3.63 MIL/uL (4.20-5.40); RED CELL DISTRIBUTION WIDTH 14.2 % (11.6-13.7); WHITE BLOOD COUNT (AUTO) 10.1 K/uL (4.8-10.8)
[2020-01-23 08:08] LABS: ALBUMIN 1.9 g/dL (3.4-5.0); ANION GAP 10.8 (8-16); CARBON DIOXIDE 24.4 mmol/L (21-32); CREATININE 0.6 mg/dL (0.6-1.3); POTASSIUM 4.2 mmol/L (3.5-5.1); TOTAL BILIRUBIN 0.3 mg/dL (0.0-1.0); URIC ACID 5.1 mg/dL (2.6-7.2)
[2020-01-23 08:37] LABS: APPEARANCE,URINE SL CLOUDY (CLEAR); BILIRUBIN,URINE NEGATIVE (NEGATIVE); BLOOD, URINE 3+ (NEGATIVE); COLOR,URINE RED (YELLOW); LEUKOCYTE ESTERASE ,URINE TRACE (NEGATIVE); NITRITE, URINE NEGATIVE (NEGATIVE); PH,URINE 6.5 (5.0-9.0); UGLUCOSE NEGATIVE (NEGATIVE)
[2020-01-23 08:51] LABS: RBC,URINE >100 /HPF (0-5)
[2020-01-23] MEDS: IBUPROFEN 600 MG TAB PO PRN ×2 (14:10→20:41)
[2020-01-24] MEDS: IBUPROFEN 600 MG TAB PO PRN (08:42)
== END 2020-01-24 18:03 | disposition home or self-care (01) | DRG 560 ==
LOC: OBSVTOIN 21:35 → MLD 21:35 → MFCC 01-22 07:45
PROVIDERS: ADMIT Obstetrics & Gynecology; ATTEND Obstetrics & Gynecology
PROC: 10E0XZZ Delivery of Products of Conception, External Approach (ICD-10-PCS; principal; 2020-01-21)
PROC: 3E0P7VZ Introduction of Hormone into Female Reproductive, Via Natural or Artificial Opening (ICD-10-PCS; 2020-01-21)
DX: O99.824 Streptococcus B carrier state complicating childbirth (principal); D62 Acute posthemorrhagic anemia; O99.214 Obesity complicating childbirth; Z37.0 Single live birth; Z3A.38 38 weeks gestation of pregnancy; O99.02 Anemia complicating childbirth; E66.01 Morbid (severe) obesity due to excess calories
CPT/HCPCS: 36415; 51702; 59200; 59409; 80053; 81001; 81003; 82570; 84550; 85018; 85025; 86592; 86886; 86900; 86901; 87086; 87653-90; 90715; J0290; J2270; J2405; J2590; J3010; J7120

== ENCOUNTER 2021-09-12 07:30 | Emergency (ER) | payer MEDICAID ==
[~2021-09-12] VITALS: Ht 152.4 cm; Wt 94.8 kg
[~2021-09-12 07:30] MED LIST changes: -DOCU250C4 PO; -GABA300C PO; -HYDR-5123 PO; -NAPR-54 PO; -TRAM50TA1 PO
[2021-09-12 07:37] VITALS: BP 137/75
--- NOTE | 2021-09-12 07:53 | NUR ---
DR BLAIR AT BEDSIDE.
--- NOTE | 2021-09-12 07:59 | NUR ---
31 Y/O F C/O STOMACH AND ABD PAIN 8/10 SICNE LAST NIGHT. NAUSEA BUT NO VOMITING. DIARRHEA X3 WITH BLOOD. PER PT " MY STOOL WAS BLOODY AND SLIMEY". NKA PMH: ASTHMA, GOLDBLADDER REMOVED 2017
[2021-09-12] MEDS ORDERED: ONDANSETRON 4 MG ODT PO ONE (08:00)
[2021-09-12] MEDS ORDERED: ALUMINUM HYD/MAG/SIMETHICONE 30 ML UDC PO ONE (08:00)
[2021-09-12] MEDS ORDERED: ONDA-188 PO (08:08)
--- NOTE | 2021-09-12 08:54 | NUR ---
Chart checked and completed. The patient's care was reviewed and supervised by Katherine Silveira, RN, RN.
--- NOTE | 2021-09-12 08:55 | NUR ---
Patient discharged with v/s stable. Written and verbal after care instructions given and explained. Patient alert, oriented and verbalized understanding of instructions. Ambulatory with steady gait. All questions addressed prior to discharge. ID band removed. Patient advised to follow up with PMD. Rx of ONDANSETRON given. Opportunity to ask questions provided and answered.
== END 2021-09-12 08:54 | disposition home or self-care (01) ==
LOC: MED 07:30
DX: R10.13 Epigastric pain (principal); K92.1 Melena; I10 Essential (primary) hypertension; J45.909 Unspecified asthma, uncomplicated
CPT/HCPCS: 81002; 81025; 99283; Q0162